=== PATIENT | male | born 1940 | race Caucasian/White ===

== ENCOUNTER 2016-11-30 17:20 | Observation (INO) ==
--- NOTE | 2016-11-30 18:01 | Emergency Department Note ---
START Narrative - START START: I examined this patient and my medical decision-making was reviewed with the SENIOR NETWORK ENGINEER/PA/Advanced Practice Nurse/Resident Physician. I agree with the documented findings, disposition and treatment plan as described except to the extent set forth below. ED attending note: I saw this Patient with the emergency medicine resident Dr. Garcia. Please see a copy of his note for details of the H&P, evaluation, management and disposition of this emergency Department patient. We independently had [id number] contact with the patient. Briefly 76-year-old male history of AAA repair rotation in August and having back pain present for outpatient MRI by his PCP results show probable abscess in iliopsoas area. And is stable abdominal abdominal aortic aneurysm. We consulted the hospitalist service who will accept him for admission after consultation with our general surgical service here. Patient also informed. Blood work pending. Admission anticipated and pending. IV antibiotics are being given after blood cultures. Patient is neurologically nonfocal or change in bowel or bladder habits afebrile with stable vital signs. Patient appears comfortable.
[2016-11-30 18:15] LABS: Basophils # 0.1 K/mcL (0.0-0.2); Basophils % 0.5 %; Eosinophils # 0.4 K/mcL (0.0-0.6); Eosinophils % 2.8 %; Hematocrit 35.6 % (37.5-50.1); Hemoglobin 11.3 g/dL (12.9-16.9); Immature Granulocytes % 2.7 % (0-4); Lymphocytes # 3.3 K/mcL (0.6-4.6); Lymphocytes % 25.8 %; Mean Corpuscular HGB Conc 31.7 g/dL (31.6-35.5); Mean Corpuscular Volume 88.1 fL (83.0-100.0); Mean Platelet Volume 8.9 fL (9.4-12.4); Monocytes # 0.8 K/mcL (0.0-1.3); Monocytes % 6.5 %; Neutrophils # 7.9 K/mcL (1.6-8.9); Platelet Count 372 K/mcL (140-400); Red Blood Count 4.04 M/mcL (4.19-5.50); Red Cell Distribution Width 15.3 % (11.5-14.5); Segmented Neutrophils % 61.7 %
[2016-11-30 18:21] LABS: INR 1.2; Prothrombin Time 13.2 Seconds (9.4-12.1)
--- NOTE | 2016-11-30 18:22 | Emergency Department Note ---
Disposition Clinical Impression: Psoas abscess, right Disposition: Admitted As Inpatient Condition: Good Referrals: NO,PCP [Non-Partnered Physician] - Forms: ED Satisfaction Letter Time of Disposition: 18:28 Back Pain HPI - General Chief Complaint: ED Back Pain/Injury Stated Complaint: sent from PCP s/p MRI Time Seen by Provider: 11/30/16 17:23 Source: patient Mode of arrival: ambulatory Limitations: no limitations Nursing Notes Reviewed: Yes Vital Signs Reviewed: Yes - History of Present Illness HPI Narrative: Patient is a 36-year-old male with CHF, hypertension, hyperlipidemia, renal cancer, CKD, chronic low back pain, aortic aneurysm with repair 10 years ago and revision in August. He presents today due to abnormal MRI. Patient states that he had a revision of his aneurysm in August, shortly after, he began having right-sided low back pain. He is following with his primary care physician who has been treating his pain. An MRI ordered today that showed a right psoas abscess. He was directed to the ED for further evaluation. Patient states that he is mainly been having pain in his right low back with walking, going from sitting to standing. Denies any fevers, nausea, vomiting, numbness, tingling, weakness, chest pain, shortness of breath. - Related Data Home Medications Medication Instructions Recorded Confirmed Aspirin Enteric Coated [Aspirin EC] 81 mg PO DAILY 11/30/16 11/30/16 Carvedilol 12.5 mg PO BID 11/30/16 11/30/16 Escitalopram [Lexapro] 10 mg PO DAILY 11/30/16 11/30/16 Furosemide [Lasix] 20 mg PO DAILY 11/30/16 11/30/16 HYDROcodone/Acet 5/325 mg [[place] 1 - 2 tab PO Q6H PRN 11/30/16 11/30/16 5-325 mg] Lisinopril [Zestril] 5 mg PO DAILY 11/30/16 11/30/16 Simvastatin [Zocor] 40 mg PO HS 11/30/16 11/30/16 Zolpidem [Ambien] 10 mg PO HS PRN 11/30/16 11/30/16 Allergies Allergy/AdvReac Type Severity Reaction Status Date / Time No Known Allergies Allergy Verified 10/19/16 10:47 Constitutional: Denies: fever Cardiovascular: Denies: chest pain, palpitations Respiratory: Denies: cough, dyspnea, wheezes Gastrointestinal: Denies: abdominal pain, nausea, vomiting, diarrhea, constipation Genitourinary: Denies: urgency, dysuria Musculoskeletal: Reports: back pain Integumentary: Denies: rash Neurological: Denies: weakness, numbness, paresthesias Past Medical History - Past Medical History Attestation: Yes The following information was validated with the patient. Source: patient Medical history: Reports: arthritis, cancer, CHF, hyperlipidemia, hypertension Surgical history: Reports: angioplasty/stent Psychiatric history: Reports: no psych history - Social History Smoking Status: Current every day smoker Smokeless Tobacco Status: No Alcohol use: Reports: rarely Drug use: Reports: none Physical Exam - General Limitations: no limitations General appearance: alert, in no apparent distress - Head Head exam: atraumatic, normocephalic, normal inspection - Eye Eye exam: Present: normal appearance, PERRL, EOMI - ENT ENT exam: mucous membranes moist - Neck Neck exam: Present: normal inspection, full ROM, trachea midline - Chest Chest inspection: Present: normal inspection, symmetric chest wall rise - Respiratory Respiratory exam: Present: normal lung sounds bilaterally - Cardiovascular Cardiovascular exam: Present: regular rate, normal rhythm, normal heart sounds - Abdominal Exam Abdominal exam: Present: soft, Non-Tender. Absent: tenderness, distention, guarding, rebound, rigidity - Extremities Exam Extremities exam: Present: normal inspection, full ROM, other (+2 over 4 posterior tibial pulses. Neurovascularly intact of bilateral lower extremities. ). Absent: tenderness, pedal edema, joint swelling, calf tenderness - Back Exam Back exam: Absent: CVA tenderness (R), CVA tenderness (L), muscle spasm, paraspinal tenderness, vertebral tenderness - Neurological Exam Neurological exam: Present: alert, oriented X3. Absent: motor sensory deficit - Psychiatric Psychiatric exam: Present: normal affect, normal mood - Skin Skin exam: Present: warm, dry, intact, normal color Course Course Narrative: Vitals within normal limits. Patient has no focal neurologic deficits of the lower extremities. +2 over 4 posterior tibial pulses bilaterally. No reproducible back pain on exam. I spoke with the hospitalist who stated that she would accept the patient but wanted surgery to be contacted. I talked with Dr. Spring who stated that there was no much that she could offer in terms of treatment, however, she was agreeable with following the patient and acting as a consult for any further recommendation. Patient will need interventional radiology drainage in the morning. We will draw a sick lab work, cultures, lactic acid and started Zosyn. Plan for admission for further care. MRI shows right psoas muscle collection approximately 4.2 x 2.8 cm. Vital Signs Temperature 97.7 F 11/30/16 17:23 Pulse Rate 83 11/30/16 17:23 Respiratory Rate 18 11/30/16 17:23 Blood Pressure 142/82 11/30/16 17:23 O2 Sat by Pulse Oximetry 97 11/30/16 17:23 Temperature 97.7 F 11/30/16 17:23 Pulse Rate 83 11/30/16 17:23 Respiratory Rate 18 11/30/16 17:23 Blood Pressure 142/82 11/30/16 17:23 O2 Sat by Pulse Oximetry 97 11/30/16 17:23 Oxygen Delivery Oxygen Delivery Room Air Back Pain/Injury - MDM Narrative Medical decision making narrative: Vitals within normal limits. Patient has no focal neurologic deficits of the lower extremities. +2 over 4 posterior tibial pulses bilaterally. No reproducible back pain on exam. I spoke with the hospitalist who stated that she would accept the patient but wanted surgery to be contacted. I talked with Dr. Spring who stated that there was no much that she could offer in terms of treatment, however, she was agreeable with following the patient and acting as a consult for any further recommendation. Patient will need interventional radiology drainage in the morning. We will draw a sick lab work, cultures, lactic acid and started Zosyn. Plan for admission for further care. MRI shows right psoas muscle collection approximately 4.2 x 2.8 cm. - Medical Records Medical records reviewed: Yes I reviewed the patient's medical records. - Lab Data Lab results reviewed: Yes I reviewed the patient's lab results. Result diagrams: 11/30/16 18:00 Lab Results 11/30/16 Range/Units 18:00 WBC 12.9 H (4.3-11.1) K/mcL RBC 4.04 L (4.19-5.50) M/mcL Hgb 11.3 L (12.9-16.9) g/dL Hct 35.6 L (37.5-50.1) % MCV 88.1 (83.0-100.0) fL MCH 28.0 (28.0-33.3) pg MCHC 31.7 (31.6-35.5) g/dL RDW 15.3 H (11.5-14.5) % Plt Count 372 (140-400) K/mcL MPV 8.9 L (9.4-12.4) fL Immature Gran % 2.7 (0-4) % Seg Neutrophils % 61.7 % Lymphocytes % 25.8 % Monocytes % 6.5 % Eosinophils % 2.8 % Basophils % 0.5 % Neutrophils # 7.9 (1.6-8.9) K/mcL Lymphocytes # 3.3 (0.6-4.6) K/mcL Monocytes # 0.8 (0.0-1.3) K/mcL Eosinophils # 0.4 (0.0-0.6) K/mcL Basophils # 0.1 (0.0-0.2) K/mcL - Radiology Data Radiology results reviewed: Yes I reviewed the patient's radiology results. - EKG Data EKG attestation: Yes I reviewed and interpreted this EKG. EKG results narrative: 11/30/2016 18:17. Sinus rhythm. Rate 80. P interval 175. QRS 108. QTC 411. Left axis deviation. No acute ST elevation or depression. No changes from previous EKG on 01/19/2013 [facility] - [facility] Situation: Demographics, MOA Background: Presenting Complaint, Relevant PMH, Meds, & Allergies Assessment: Vital Signs, Course and respsone to treatment, Exam Concerns, Patient/Family Expectation, Pertinant Lab Results, Outstanding Labs Recommendation: Barrier(s) to disposition, Recommendation based on pending studies, treatments, or consults [facility] Report Given to: Dr. Matt LundBFredADaija Repor Time: 18:28
[2016-11-30 18:24] LABS: Activated Partial Thrombo Time 27.7 Seconds (26.0-36.0)
[2016-11-30 18:30] LABS: Calcium 10.1 mg/dL (8.6-10.8); Potassium 4.3 mEq/L (3.5-4.5)
[2016-11-30] MEDS ORDERED: Naloxone 0.4 MG/ML INJ IVP PRN (20:19)
--- NOTE | 2016-11-30 20:51 | Internal Med History&Physical ---
<Lexx Segundo - Last Filed: 11/30/16 21:04> Date of Encounter: 11/30/16 Time of Encounter: 20:00 Assessment and Plan (1) Psoas abscess, right Current visit: Yes Status: Suspected - Suspected right psoas abscess given the fluid collection at size of 4.2 x 2.8 cm and recent revision surgery for AAA. - Positive for leukocytosis but no fever. - Will obtain more blood cultures and check ESR & CRP. - Pain control with prn tylenol and opioid. - Will consult interventional radiology for drainage/sampling of the possible abscess. - Will start IV Zosyn (broad coverage including Pseudomonas) and vancomycin (to cover MRSA given it's likely related to recent surgery). (2) Lumbar back pain with radiculopathy affecting right lower extremity Current visit: Yes Status: Acute - Patient's current right lower back pain is likely secondary to mixed pictures of right psoas abscess and significant spinal canal & foraminal stenosis at L4 as seen on lumbar spine MRI. - Will treat right psoas abscess with Abx and drainage. - Patient may benefit from spinal surgery consult regarding those stenoses and associated radiculopathy. (3) CKD (chronic kidney disease) Current visit: Yes Status: Chronic - SCr 2.19 today with eGFR 29. - Will obtain renal US for further evaluation. - Encourage oral hydration and avoid nephrotoxin. - Continue to monitor renal function and electrolytes. Qualifiers: Chronic kidney disease stage: stage 4 (severe) Qualified Code(s): N18.4 - Chronic kidney disease, stage 4 (severe) (4) Hypertension Current visit: Yes Status: Chronic - BP within normal range. - Continue home antihypertensive regimen. Qualifiers: Hypertension type: essential hypertension Qualified Code(s): I10 - Essential (primary) hypertension (5) History of AAA (abdominal aortic aneurysm) repair Current visit: Yes Status: Chronic - S/p AAA repair in 1997 and revision surgery in August 2016 at [facility]. (6) DVT prophylaxis Current visit: Yes Status: Acute - SQ heparin. Internal Medicine - H&P: HPI Chief complaint: Right lower back pain Admitted From: Emergency Dept Plans for Post Hospital Care: Home History of present illness: Mr. Lowry is a 76 year old male with PMH of CKD stage 3, HTN, CHF, recently found left renal mass and abdominal aorta aneurysm s/p surgeries in 1997 and recent revision in August 2016 at [facility]. Patient reports having right lower back pain since the revision surgery and received pain medications from his PCPs. Patient eventually got outpatient lumbar spine MRI today and that showed Mild-moderate spinal canal stenosis at L4-L5 with severe right L4 foraminal stenosis. fluid collection with overall psoas enlargement & edema, concerning of abscess. Patient was called to come to [place] ED for further evaluation and management. Patient reports the right lower back pain can radiate down to his right knee and it's aggravated by ambulation. Patient denies fever, chills, numbness/tingling, focal weakness or urinary symptoms. Patient denies any known recent trauma or injury. Per patient's daughter at bedside, patient's abdominal aorta aneurysm revision surgery in August 2016 was complicated by prolonged bleeding requiring persistent pressure on right groin site and took 5 hours to finish the surgery. Past Med Surg Social Fam HX - Past Medical History Medical history: arthritis, cancer, CHF (Unknown systolic or diastolic. Per pt, his last echo was many years ago and not at this facility. It seems to be well- controlled.), hyperlipidemia, hypertension Psychiatric history: no psych history - Past Surgical History Surgical History: vascular surgery (AAA repair in 1997 and revision in August 2016 at [facility].) - Social History Smoking Status: Current every day smoker Packs per day: 1 pack per days for more than 50 years Smokeless Tobacco Status: No Alcohol use: rarely Drug use: none - Family History Father Living Status: Age at : 62 Cause of : LA Hx Family Cardiac Disorders: Yes (LA, HTN) Mother Living Status: Age at : 68 Hx Family Cancer: Yes (Stomach cancer) Internal Medicine - H&P: Meds Aspirin Enteric Coated [Aspirin EC] 81 mg PO DAILY 11/30/16 [History] Carvedilol 12.5 mg PO BID 11/30/16 [History] Escitalopram [Lexapro] 10 mg PO DAILY 11/30/16 [History] Furosemide [Lasix] 20 mg PO DAILY 11/30/16 [History] HYDROcodone/Acet 5/325 mg [[place] 5-325 mg] 1 - 2 tab PO Q6H PRN 11/30/16 [ History] Lisinopril [Zestril] 5 mg PO DAILY 11/30/16 [History] Simvastatin [Zocor] 40 mg PO HS 11/30/16 [History] Zolpidem [Ambien] 10 mg PO HS PRN 11/30/16 [History] Allergies No Known Allergies Allergy (Verified 10/19/16 10:47) All Systems PM: A 10-system review of systems was performed and is negative for pertinent findings except as documented above in the HPI. - Constitutional Constitutional: weight loss (18 lbs), no anorexia, no chills, no fever(s) - EENT Eyes: no change in vision Ears: no decreased hearing Nose, mouth and throat: no dysphagia, no odynophagia - Cardiovascular Cardiovascular ROS IM: no chest pain, no lightheadedness, no palpitations, no syncope - Respiratory Respiratory: no cough, no dyspnea, no hemoptysis - Gastrointestinal Gastrointestinal: abdominal pain (RLQ), no diarrhea, no hematochezia, no melena , no nausea, no vomiting - Genitourinary Genitourinary ROS male: no difficulty urinating, no dysuria, no hematuria - Musculoskeletal Musculoskeletal ROS IM: back pain, no arthralgias, no myalgias - Integumentary Integumentary IM: no pruritus, no rash - Neurological Neurological ROS: no focal weakness, no numbness, no tingling - Hematologic/Lymphatic Hematologic/Lymphatic: no easy bleeding, no easy bruising - Constitutional Vitals: Temp Pulse Resp BP Pulse Ox 98.0 F 80 16 124/71 96 11/30/16 20:27 11/30/16 20:27 11/30/16 20:27 11/30/16 20:27 11/30/16 20:27 General appearance: Present: A&O X 3 - Head Head exam: Present: atraumatic, normocephalic - Eye Eye exam: Present: PERRL, conjuntiva pink, sclera anicteric - Neck Neck exam general surgery: Present: supple, trachea midline. Absent: lymphadenopathy - Respiratory Respiratory exam: Present: CTAB. Absent: accessory muscle use, rales, rhonchi, wheezes - Cardiovascular Cardiovascular exam: Present: RRR, +S1, +S2. Absent: diastolic murmur, gallop, rubs, systolic murmur - GI/Abdominal GI/Abdominal exam: Present: normal bowel sounds, soft, tenderness (Right middle and lower quadrants), no peritoneal signs. Absent: distended - Extremities Exam Extremities exam: Present: warm, radial pulses palpable and symetrical. Absent : calf tenderness, cyanotic, pedal edema - Back Exam Back exam: Present: tenderness (Right lower back) - Neurological Exam Neurological exam: Present: CN II-XII intact, oriented X3, no focal deficits. Absent: pronater drift, facial droop, speech deficit - Skin Skin exam: Present: dry, intact Internal Med - H&P Results - Labs CBC & Chem 7: 11/30/16 18:00 11/30/16 18:00 <AldoMikal Martines - Last Filed: 12/01/16 03:20> Date of Encounter: 11/18/16 Internal Medicine - H&P: HPI History of present illness: Mr. Lowry is a 76 year old male was admitted to via the emergency room when he was referred by his PCP after review of outpatient MRI of lumbar spine to evaluate 3mos history of low back pain with right leg radiculopathy. The patient is s/p AAA repair-revision in August. MRI demonstrated a 4.2 x 2.8 cm fluid collection concerning for abscess in the right iliopsoas muscle area. The study also demonstrated multi-level DDD/DJD of lumbar spine with moderate L4-L5 spinal canal stenosis and severe right L4 neuroforaminal stenosis. He is not toxic or acutely ill. He does not possess evidence of gross neurologic nor vascular impairment. He does not fulfill SIRS/ sepsis criteria upon admission. Radicular pain by examination most consistent with apparent lumbar spinal stenoses. Lower flank pain may relate to right psoas muscle and abscess fluid collection. Formal sampling of abscess material will help guide appropriate treatment(s). Workup and treatments will proceed comprehensively. The patient was visited and interviewed and examined. I examined this patient and my medical decision-making was reviewed with the Resident Physician, Dr. Lexx Segundo. For this encounter, I have reviewed the documentation, treatment plan, and medical decision making. I agree with the documented findings, disposition and treatment plan as described except to the extent set forth below. Cumulative laboratory and radiographic database was reviewed, considered and discussed. Given the patient's presenting chief concerns, past medical history,clinical findings and symptoms, he is admitted at this time to undergo further evaluation and disposition. Orders written. Past Med Surg Social Fam HX - Past Medical History Source: old records reviewed Medical history: aortic aneurysm, peripheral artery disease, renal disease, other Psychiatric history: anxiety, depression, other - Past Surgical History Surgical History: vascular surgery, other - Social History Occupational status: retired Current living situation: Home, With Family Activity Level: Independent ambulation, Mostly sedentary Recent Out of Country Travel Within the Last 8 Weeks: No Exposure or Possible Exposure to Illness During Travel: No All Systems PM: A 10-system review of systems was performed and is negative for pertinent findings except as documented above in the HPI. - Constitutional Vitals: Temp Pulse Resp BP Pulse Ox 98.2 F 77 16 115/64 94 12/01/16 00:26 12/01/16 00:26 12/01/16 00:26 12/01/16 00:26 12/01/16 00:26 Short CBC 11/30/16 Range/Units 18:00 WBC 12.9 H (4.3-11.1) K/mcL Hgb 11.3 L (12.9-16.9) g/dL Hct 35.6 L (37.5-50.1) % Plt Count 372 (140-400) K/mcL Neutrophils # 7.9 (1.6-8.9) K/mcL BMP 11/30/16 Range/Units 18:00 Sodium 136 (136-145) mEq/L Potassium 4.3 (3.5-4.5) mEq/L Chloride 97 L (98-109) mEq/L Carbon Dioxide 30 H (19-29) mEq/L BUN 31 H (8-26) mg/dL Creatinine 2.19 H (0.72-1.25) mg/dL Glucose 108 H (70-99) mg/dL Calcium 10.1 (8.6-10.8) mg/dL Liver Function 11/30/16 Range/Units 21:02 Total Bilirubin 0.3 (0.2-1.2) mg/dL Direct Bilirubin 0.2 (0.0-0.5) mg/dL AST 16 (5-34) Units/L ALT 19 (0-55) Units/L Alkaline Phosphatase 72 (38-126) Units/L Albumin 2.8 L (3.5-5.0) g/dL Urine 11/30/16 Range/Units 23:10 Urine Color Yellow (Yellow) Urine Clarity Clear (Clear) Urine pH 6.5 (5.0-8.0) pH Units Ur Specific [place] 1.011 (1.010-1.025) Urine Protein Negative (Neg-Trace) mg/dL Urine Glucose (UA) Normal (Normal) mg/dL Vital Signs Temp Pulse Resp BP Pulse Ox 12/01/16 00:26 98.2 F 77 16 115/64 94 11/30/16 20:27 98.0 F 80 16 124/71 96 11/30/16 19:35 16 186/85 11/30/16 17:23 97.7 F 83 18 142/82 97 Intake and Output 11/30/16 11/30/16 12/01/16 15:59 23:59 07:59 Output Total 0 / 0 300 / 300 Balance 0 / 0 -300 / -300 Output: Urine 0 / 0 300 / 300 Other: Weight 95.889 kg Internal Med - H&P Results - Labs CBC & Chem 7: 11/30/16 18:00 11/30/16 18:00 Labs: Liver Function 11/30/16 Range/Units 21:02 Total Bilirubin 0.3 (0.2-1.2) mg/dL Direct Bilirubin 0.2 (0.0-0.5) mg/dL AST 16 (5-34) Units/L ALT 19 (0-55) Units/L Alkaline Phosphatase 72 (38-126) Units/L Albumin 2.8 L (3.5-5.0) g/dL Urine 11/30/16 Range/Units 23:10 Urine Color Yellow (Yellow) Urine Clarity Clear (Clear) Urine pH 6.5 (5.0-8.0) pH Units Ur Specific [place] 1.011 (1.010-1.025) Urine Protein Negative (Neg-Trace) mg/dL Urine Glucose (UA) Normal (Normal) mg/dL Abnormal lab results WBC 12.9 K/mcL (4.3-11.1) H 11/30/16 18:00 RBC 4.04 M/mcL (4.19-5.50) L 11/30/16 18:00 Hgb 11.3 g/dL (12.9-16.9) L 11/30/16 18:00 Hct 35.6 % (37.5-50.1) L 11/30/16 18:00 RDW 15.3 % (11.5-14.5) H 11/30/16 18:00 MPV 8.9 fL (9.4-12.4) L 11/30/16 18:00 ESR 124 mm/hr (0-10) H 11/30/16 21:02 PT 13.2 Seconds (9.4-12.1) H 11/30/16 18:00 Chloride 97 mEq/L (98-109) L 11/30/16 18:00 Carbon Dioxide 30 mEq/L (19-29) H 11/30/16 18:00 BUN 31 mg/dL (8-26) H 11/30/16 18:00 Creatinine 2.19 mg/dL (0.72-1.25) H 11/30/16 18:00 Est GFR ( Amer) 36 (> 60) L 11/30/16 18:00 Est GFR (Non-Af Amer) 29 (> 60) L 11/30/16 18:00 Glucose 108 mg/dL (70-99) H 11/30/16 18:00 C-Reactive Protein 58 mg/L (Less than 5) H 11/30/16 21:02 Albumin 2.8 g/dL (3.5-5.0) L 11/30/16 21:02 Globulin 4.3 g/dL (2.4-3.5) H 11/30/16 21:02 Albumin/Globulin Ratio 0.7 (1.1-2.2) L 11/30/16 21:02 Laboratory Results WBC 12.9 K/mcL (4.3-11.1) H 11/30/16 18:00 RBC 4.04 M/mcL (4.19-5.50) L 11/30/16 18:00 Hgb 11.3 g/dL (12.9-16.9) L 11/30/16 18:00 Hct 35.6 % (37.5-50.1) L 11/30/16 18:00 MCV 88.1 fL (83.0-100.0) 11/30/16 18:00 MCH 28.0 pg (28.0-33.3) 11/30/16 18:00 MCHC 31.7 g/dL (31.6-35.5) 11/30/16 18:00 RDW 15.3 % (11.5-14.5) H 11/30/16 18:00 Plt Count 372 K/mcL (140-400) 11/30/16 18:00 MPV 8.9 fL (9.4-12.4) L 11/30/16 18:00 Immature Gran % 2.7 % (0-4) 11/30/16 18:00 Seg Neutrophils % 61.7 % 11/30/16 18:00 Lymphocytes % 25.8 % 11/30/16 18:00 Monocytes % 6.5 % 11/30/16 18:00 Eosinophils % 2.8 % 11/30/16 18:00 Basophils % 0.5 % 11/30/16 18:00 Neutrophils # 7.9 K/mcL (1.6-8.9) 11/30/16 18:00 Lymphocytes # 3.3 K/mcL (0.6-4.6) 11/30/16 18:00 Monocytes # 0.8 K/mcL (0.0-1.3) 11/30/16 18:00 Eosinophils # 0.4 K/mcL (0.0-0.6) 11/30/16 18:00 Basophils # 0.1 K/mcL (0.0-0.2) 11/30/16 18:00 ESR 124 mm/hr (0-10) H 11/30/16 21:02 PT 13.2 Seconds (9.4-12.1) H 11/30/16 18:00 INR 1.2 11/30/16 18:00 APTT 27.7 Seconds (26.0-36.0) 11/30/16 18:00 Sodium 136 mEq/L (136-145) 11/30/16 18:00 Potassium 4.3 mEq/L (3.5-4.5) 11/30/16 18:00 Chloride 97 mEq/L (98-109) L 11/30/16 18:00 Carbon Dioxide 30 mEq/L (19-29) H 11/30/16 18:00 BUN 31 mg/dL (8-26) H 11/30/16 18:00 Creatinine 2.19 mg/dL (0.72-1.25) H 11/30/16 18:00 Est GFR ( Amer) 36 (> 60) L 11/30/16 18:00 Est GFR (Non-Af Amer) 29 (> 60) L 11/30/16 18:00 BUN/Creatinine Ratio 14 (6-26) 11/30/16 18:00 Glucose 108 mg/dL (70-99) H 11/30/16 18:00 Calculated Osmolality 289 (280-300) 11/30/16 18:00 Lactic Acid 0.9 mmol/L (0.5-2.2) 11/30/16 18:00 Calcium 10.1 mg/dL (8.6-10.8) 11/30/16 18:00 Total Bilirubin 0.3 mg/dL (0.2-1.2) 11/30/16 21:02 Direct Bilirubin 0.2 mg/dL (0.0-0.5) 11/30/16 21:02 Indirect Bilirubin 0.1 mg/dL (0.0-1.2) 11/30/16 21:02 AST 16 Units/L (5-34) 11/30/16 21:02 ALT 19 Units/L (0-55) 11/30/16 21:02 Alkaline Phosphatase 72 Units/L (38-126) 11/30/16 21:02 C-Reactive Protein 58 mg/L (Less than 5) H 11/30/16 21:02 Serum Total Protein 7.1 g/dL (6.0-8.3) 11/30/16 21:02 Albumin 2.8 g/dL (3.5-5.0) L 11/30/16 21:02 Globulin 4.3 g/dL (2.4-3.5) H 11/30/16 21:02 Albumin/Globulin Ratio 0.7 (1.1-2.2) L 11/30/16 21:02 Urine Color Yellow (Yellow) 11/30/16 23:10 Urine Clarity Clear (Clear) 11/30/16 23:10 Urine pH 6.5 pH Units (5.0-8.0) 11/30/16 23:10 Ur Specific [place] 1.011 (1.010-1.025) 11/30/16 23:10 Urine Protein Negative mg/dL (Neg-Trace) 11/30/16 23:10 Urine Glucose (UA) Normal mg/dL (Normal) 11/30/16 23:10 Urine Ketones Negative mg/dL (Negative) 11/30/16 23:10 Urine Blood Negative (Negative) 11/30/16 23:10 Urine Nitrite Negative (Negative) 11/30/16 23:10 Urine Bilirubin Negative (Negative) 11/30/16 23:10 Urine Urobilinogen Normal mg/dL (Normal) 11/30/16 23:10 Ur Leukocyte Esterase Negative (Negative) 11/30/16 23:10 Ur Culture Indicated? NO (NO) 11/30/16 23:10 Impressions Retroperitoneum Ultrasound 11/30/16 22:00 IMPRESSION: Renal cysts are seen on the left with an area of increased echotexture which is not seen as a mass on the recent CT scan and therefore must be considered technically erroneous. D/ / Robert Zamora MD / Robert Zamora MD Interpreting Provider: Robert Zamora MD - Impressions ITS Impressions Retroperitoneum Ultrasound 11/30/16 22:00 IMPRESSION: Renal cysts are seen on the left with an area of increased echotexture which is not seen as a mass on the recent CT scan and therefore must be considered technically erroneous. D/ / Robert Zamora MD / Robert Zamora MD Interpreting Provider: Robert Zamora MD - Attending Attestation My signature below is to certify that this patient is under my care and that I, or the Resident Physician working with me, has had a [id number] encounter with this patient.
[2016-11-30] MEDS ORDERED: Vancomycin 1,500 MG in D5% in Water 250 ML IVPB SCH (21:00)
[2016-11-30 21:25] LABS: Albumin 2.8 g/dL (3.5-5.0); Albumin/Globulin Ratio 0.7 (1.1-2.2); Bilirubin,Direct 0.2 mg/dL (0.0-0.5); Bilirubin,Indirect 0.1 mg/dL (0.0-1.2); Bilirubin,Total 0.3 mg/dL (0.2-1.2); Globulin 4.3 g/dL (2.4-3.5); Total Protein 7.1 g/dL (6.0-8.3)
[2016-11-30] MEDS: Piperacillin/Tazobactam 3.375 GM in D5% in Water (Mini-Bag+) 100 ML IVPB SCH (23:05)
[2016-11-30] MEDS: *HR* Heparin 5,000 UNIT/ML VIAL SQ SCH (23:05)
[2016-11-30 23:25] LABS: Bilirubin,Urine Negative (Negative); Blood,Urine Negative (Negative); Clarity,Urine Clear (Clear); Color,Urine Yellow (Yellow); Glucose,Urine (UA) Normal (Normal); Ketones,Urine Negative (Negative); Leukocyte Esterase,Urine Negative (Negative); Nitrite,Urine Negative (Negative); PH,Urine 6.5 pH Units (5.0-8.0); Protein,Urine Negative (Neg-Trace); Specific Gravity,Urine 1.011 (1.010-1.025); Urobilinogen,Urine Normal (Normal)
[2016-11-30] MEDS: *HR* OxyCODONE Immed Rel 5 MG TABLET PO PRN (23:29)
[2016-12-01] MEDS ORDERED: Vancomycin 1,250 MG in D5% in Water 250 ML IVPB ONE (01:00)
[2016-12-01] MEDS ORDERED: Ondansetron 4 MG/2 ML VIAL IVP PRN (03:25)
[2016-12-01 05:47] LABS: Basophils % 0.4 %; Eosinophils # 0.4 K/mcL (0.0-0.6); Eosinophils % 3.4 %; Hematocrit 32.6 % (37.5-50.1); Hemoglobin 10.1 g/dL (12.9-16.9); Immature Granulocytes % 2.5 % (0-4); Lymphocytes # 2.6 K/mcL (0.6-4.6); Lymphocytes % 22.7 %; Mean Corpuscular Hemoglobin 27.4 pg (28.0-33.3); Mean Corpuscular Volume 88.3 fL (83.0-100.0); Mean Platelet Volume 8.9 fL (9.4-12.4); Monocytes # 0.9 K/mcL (0.0-1.3); Monocytes % 7.9 %; Neutrophils # 7.1 K/mcL (1.6-8.9); Platelet Count 336 K/mcL (140-400); Red Blood Count 3.69 M/mcL (4.19-5.50); Red Cell Distribution Width 15.3 % (11.5-14.5); Segmented Neutrophils % 63.1 %
[2016-12-01 06:01] LABS: Calcium 9.5 mg/dL (8.6-10.8); Potassium 4.2 mEq/L (3.5-4.5)
[2016-12-01] MEDS: *HR* Heparin 5,000 UNIT/ML VIAL SQ SCH ×2 (06:28→17:50)
[2016-12-01] MEDS: Ringers Solution, Lactated 500 ML IVC SCH ×2 (06:33→15:54)
[2016-12-01] MEDS: Aspirin Enteric Coated 81 MG Tablet PO SCH (08:47)
[2016-12-01] MEDS: Acetaminophen 325 MG TABLET PO PRN ×2 (09:19→15:49)
[2016-12-01] MEDS: *HR* OxyCODONE Immed Rel 5 MG TABLET PO PRN ×2 (09:19→15:49)
--- NOTE | 2016-12-01 10:36 | Event Note ---
Date of Encounter: 12/01/16 Time of Encounter: 08:05 Stopped in and talked with patient and daughter. Patient has been having middle lower and right back pain ever since his enodvascular Ao-bifem aneurysm repair at [facility]. Due to the back pain he had an MRI done which showed two fluid collections within the right psoas. HE was recently diagnosed with left renal cell carcinoma. He denies issues with fevers, chill, or night sweats. He has a little abdominal pain, diffuse. Discussed with patient and daughter there is nothing to do from a general surgery standpoint. I have ensured that there is a consult to IR and an order for percutaneous aspiration or drain placement with cultures. It may be a sterile fluid collection. Pts wbc 11-12. Abdomen soft, no rebound or guarding, + bs right wheel truing machine tender to palpation. General surgery will sign- off, please call if needed.
--- NOTE | 2016-12-01 11:22 | IR Procedure Note ---
Date of procedure: 12/01/16 Consent Obtained: Verbal consent, Written consent Timeout: Correct patient and procedure verified, Correct site verified, Time out performed, Skin prep completed Local anesthetic: Lidocaine 1% Indications: Psoas Abscess Procedure Performed: Psoas abscess drain placement Site/Technique: 10 Fr abscess drain placed in right psoas abscess Results/Findings: 40 cc pus aspirated Estimated blood loss (cc): 1 Complications: None; Tolerated procedure well Post Procedure Treatment Plan: Drain to LILY bulb suction
[2016-12-01] MEDS: Piperacillin/Tazobactam 3.375 GM in D5% in Water (Mini-Bag+) 100 ML IVPB SCH (12:00)
[2016-12-01] MEDS: *HR* HYDROmorphone (PF) 1 MG/ML SYRINGE IVP PRN ×2 (14:55→20:46)
--- NOTE | 2016-12-01 15:05 | Internal Med Progress Note ---
Date of Encounter: 12/01/16 Time of Encounter: 10:00 - Assessment and plan (1) Psoas abscess, right Current Visit: Yes Status: Suspected Assessment and plan: We will await results of culture and sensitivity after abscesses drained. Continue antibiotics for now. Moderate risk for complications (2) Lumbar back pain with radiculopathy affecting right lower extremity Current Visit: Yes Status: Acute (3) Hypertension Current Visit: Yes Status: Chronic Assessment and plan: Blood pressure is well controlled. Continue lisinopril Qualifiers: Hypertension type: essential hypertension Qualified Code(s): I10 - Essential (primary) hypertension (4) CKD (chronic kidney disease) Current Visit: Yes Status: Chronic Assessment and plan: Creatinine is stable. Will those medications regularly according to GFR. Qualifiers: Chronic kidney disease stage: stage 4 (severe) Qualified Code(s): N18.4 - Chronic kidney disease, stage 4 (severe) (5) DVT prophylaxis Current Visit: Yes Status: Acute Assessment and plan: With subcutaneous heparin - Subjective Interval history: Patient is awake and alert. Pain is well controlled in his right lower back region. No fever or chills reported. Awaiting IR guided incision and drainage of psoas abscess later today. - Constitutional Vitals: Temp Pulse Resp BP Pulse Ox 98.3 F 86 14 96/54 96 12/01/16 12:03 12/01/16 12:03 12/01/16 12:03 12/01/16 12:03 12/01/16 12:03 General appearance: Present: cooperative, A&O X 3, pleasant, no acute distress, answers questions appropriately - Respiratory Respiratory exam: Present: CTAB. Absent: accessory muscle use, rales, rhonchi, wheezes - Cardiovascular Cardiovascular exam: Present: RRR, +S1, +S2. Absent: diastolic murmur, gallop, rubs, systolic murmur - GI/Abdominal GI/Abdominal exam: Present: normal bowel sounds, soft, no peritoneal signs. Absent: distended, tenderness - Extremities Exam Extremities exam: Present: warm, radial pulses palpable and symetrical. Absent : calf tenderness, cyanotic, pedal edema - Back Exam Additional comments: Palpable swelling in the left CVA region. Nontender to palpation. Tender mass present in the right paraspinal region in the lumbar area - Neurological Exam Neurological exam: Present: alert, oriented X3, no focal deficits. Absent: facial droop, speech deficit - Skin Skin exam: Present: dry, intact Internal Medicine: Result - Labs CBC & Chem 7: 12/01/16 05:09 12/01/16 05:09 Labs: Short CBC 12/01/16 Range/Units 05:09 WBC 11.2 H (4.3-11.1) K/mcL Hgb 10.1 L (12.9-16.9) g/dL Hct 32.6 L (37.5-50.1) % Plt Count 336 (140-400) K/mcL Neutrophils # 7.1 (1.6-8.9) K/mcL BMP 12/01/16 05:09 Sodium 136 Potassium 4.2 Chloride 100 Carbon Dioxide 25 BUN 28 H Creatinine 2.01 H Glucose 120 H Calcium 9.5 Liver Function 11/30/16 Range/Units 21:02 Total Bilirubin 0.3 (0.2-1.2) mg/dL Direct Bilirubin 0.2 (0.0-0.5) mg/dL AST 16 (5-34) Units/L ALT 19 (0-55) Units/L Alkaline Phosphatase 72 (38-126) Units/L Albumin 2.8 L (3.5-5.0) g/dL Urine 11/30/16 Range/Units 23:10 Urine Color Yellow (Yellow) Urine Clarity Clear (Clear) Urine pH 6.5 (5.0-8.0) pH Units Ur Specific [place] 1.011 (1.010-1.025) Urine Protein Negative (Neg-Trace) mg/dL Urine Glucose (UA) Normal (Normal) mg/dL - ABG Interpretation ABG results: PT/INR, D-dimer PT 13.2 Seconds (9.4-12.1) H 11/30/16 18:00 - Impressions Impressions Retroperitoneum Ultrasound 11/30/16 22:00 IMPRESSION: Renal cysts are seen on the left with an area of increased echotexture which is not seen as a mass on the recent CT scan and therefore must be considered technically erroneous. D/ / Robert Zamora MD / Robert Zamora MD Interpreting Provider: Robert Zamora MD Retroperitoneal Abscess Drainage 12/01/16 08:08 IMPRESSION: Successful CT guided placement of a 10 [place] drain within a right psoas abscess. 40 cc of purulent fluid was aspirated from the psoas collection and sent for cultures. No immediate complications. D/ / Clinton Chapin MD / Clinton Chapin MD Interpreting Provider: Clinton Chapin MD Consult Discharge Plan - Plan Referrals: Alexander Quiroz Jr, MD [Primary Care Provider] - - Attending Attestation This document has been at least partially created by [employer] recognition technology by Dr. Madrid. Errors in grammar, wording or other phrases may exist. If errors are found after the documentation is signed, they will be addressed individually in the addendum section of this document when appropriate.
--- NOTE | 2016-12-01 17:36 | Electrocardiograph Report ---
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
[2016-12-01] MEDS: Vancomycin 1,000 MG in D5% in Water 250 ML IVPB SCH (17:50)
[2016-12-02] MEDS: Piperacillin/Tazobactam 3.375 GM in D5% in Water (Mini-Bag+) 100 ML IVPB SCH ×3 (00:19→17:22)
[2016-12-02] MEDS: *HR* OxyCODONE Immed Rel 5 MG TABLET PO PRN ×4 (00:24→20:47)
[2016-12-02] MEDS: *HR* HYDROmorphone (PF) 1 MG/ML SYRINGE IVP PRN ×4 (03:32→17:18)
[2016-12-02] MEDS: Ringers Solution, Lactated 500 ML IVC SCH ×2 (03:36→20:45)
[2016-12-02 04:34] LABS: Basophils % 0.4 %; Eosinophils # 0.4 K/mcL (0.0-0.6); Eosinophils % 3.7 %; Hematocrit 28.1 % (37.5-50.1); Hemoglobin 8.7 g/dL (12.9-16.9); Immature Granulocytes % 2.5 % (0-4); Lymphocytes # 2.4 K/mcL (0.6-4.6); Lymphocytes % 25.8 %; Mean Corpuscular Hemoglobin 27.3 pg (28.0-33.3); Mean Corpuscular Volume 88.1 fL (83.0-100.0); Mean Platelet Volume 8.8 fL (9.4-12.4); Monocytes # 0.9 K/mcL (0.0-1.3); Monocytes % 9.3 %; Neutrophils # 5.5 K/mcL (1.6-8.9); Platelet Count 275 K/mcL (140-400); Red Blood Count 3.19 M/mcL (4.19-5.50); Red Cell Distribution Width 15.2 % (11.5-14.5); Segmented Neutrophils % 58.3 %
[2016-12-02 04:57] LABS: Calcium 8.8 mg/dL (8.6-10.8); Potassium 4.2 mEq/L (3.5-4.5)
[2016-12-02] MEDS: *HR* Heparin 5,000 UNIT/ML VIAL SQ SCH ×2 (06:36→17:41)
[2016-12-02] MEDS: Aspirin Enteric Coated 81 MG Tablet PO SCH (08:06)
--- NOTE | 2016-12-02 10:09 | Internal Med Progress Note ---
Date of Encounter: 12/02/16 Time of Encounter: 09:45 - Assessment and plan (1) Psoas abscess, right Current Visit: Yes Status: Acute Assessment and plan: Cultures are currently pending. Initial analysis suggests this is an infected abscess. We will wait for culture results and continue current broad-spectrum antibiotics for now. Moderate risk for complications. Blood cultures have been negative. (2) Lumbar back pain with radiculopathy affecting right lower extremity Current Visit: Yes Status: Acute Assessment and plan: Supportive care. Pain control. (3) Hypertension Current Visit: Yes Status: Chronic Assessment and plan: Blood pressure is well controlled at this time Qualifiers: Hypertension type: essential hypertension Qualified Code(s): I10 - Essential (primary) hypertension (4) CKD (chronic kidney disease) Current Visit: Yes Status: Chronic Assessment and plan: Renal function slightly better today with creatinine of 1.8 Qualifiers: Chronic kidney disease stage: stage 4 (severe) Qualified Code(s): N18.4 - Chronic kidney disease, stage 4 (severe) (5) DVT prophylaxis Current Visit: Yes Status: Acute (6) Anemia Current Visit: Yes Status: Acute Assessment and plan: Hemoglobin 8.7 today. Will check iron, folic acid, ferritin and B12 levels. Patient has not had a colonoscopy before. We will monitor blood counts closely. Qualifiers: Anemia type: other cause Other causes of anemia: chronic disease, kidney Qualified Code(s): N18.9 - Chronic kidney disease, unspecified; D63.1 - Anemia in chronic kidney disease - Subjective Interval history: Patient underwent right psoas abscess drainage under IR guidance and has not LILY drain in place. Pain is much better. Denies any fever or chills or night sweats. No melena or hematochezia. - Constitutional Vitals: Temp Pulse Resp BP Pulse Ox 98.8 F 72 16 133/77 95 12/02/16 07:51 12/02/16 07:51 12/02/16 07:51 12/02/16 07:51 12/02/16 07:51 General appearance: Present: cooperative, A&O X 3, pleasant, no acute distress, answers questions appropriately - Respiratory Respiratory exam: Present: CTAB. Absent: accessory muscle use, rales, rhonchi, wheezes - Cardiovascular Cardiovascular exam: Present: RRR, +S1, +S2. Absent: diastolic murmur, gallop, rubs, systolic murmur - GI/Abdominal GI/Abdominal exam: Present: normal bowel sounds, soft, no peritoneal signs. Absent: distended, tenderness - Extremities Exam Extremities exam: Present: warm, radial pulses palpable and symetrical. Absent : calf tenderness, cyanotic, pedal edema - Back Exam Back exam: Absent: CVA tenderness (L), CVA tenderness (R), paraspinal tenderness - Neurological Exam Neurological exam: Present: alert, oriented X3, no focal deficits. Absent: facial droop, speech deficit Internal Medicine: Result - Labs CBC & Chem 7: 12/02/16 04:21 12/02/16 04:21 Labs: Short CBC 12/02/16 Range/Units 04:21 WBC 9.5 (4.3-11.1) K/mcL Hgb 8.7 L (12.9-16.9) g/dL Hct 28.1 L (37.5-50.1) % Plt Count 275 (140-400) K/mcL Neutrophils # 5.5 (1.6-8.9) K/mcL BMP 12/02/16 04:21 Sodium 136 Potassium 4.2 Chloride 103 Carbon Dioxide 27 BUN 24 Creatinine 1.89 H Glucose 150 H Calcium 8.8 - ABG Interpretation ABG results: PT/INR, D-dimer PT 13.2 Seconds (9.4-12.1) H 11/30/16 18:00 - Impressions Impressions Retroperitoneal Abscess Drainage 12/01/16 08:08 IMPRESSION: Successful CT guided placement of a 10 Vincentian drain within a right psoas abscess. 40 cc of purulent fluid was aspirated from the psoas collection and sent for cultures. No immediate complications. D/ / Clinton Chapin MD / Clinton Chapin MD Interpreting Provider: Clinton Chapin MD Consult Discharge Plan - Plan Referrals: Alexander Quiroz Jr, MD [Primary Care Provider] - - Attending Attestation This document has been at least partially created by [employer] recognition technology by Dr. Madrid. Errors in grammar, wording or other phrases may exist. If errors are found after the documentation is signed, they will be addressed individually in the addendum section of this document when appropriate.
[2016-12-02 11:15] LABS: Folate 9.9 ng/mL (7.0-31.4)
[2016-12-02] MEDS: Vancomycin 1,000 MG in D5% in Water 250 ML IVPB SCH (17:24)
[2016-12-03] MEDS: Piperacillin/Tazobactam 3.375 GM in D5% in Water (Mini-Bag+) 100 ML IVPB SCH ×2 (00:07→07:45)
[2016-12-03] MEDS: *HR* Heparin 5,000 UNIT/ML VIAL SQ SCH (05:50)
[2016-12-03] MEDS: Ringers Solution, Lactated 500 ML IVC SCH (07:33)
[2016-12-03] MEDS: Aspirin Enteric Coated 81 MG Tablet PO SCH (07:47)
[2016-12-03] MEDS: *HR* OxyCODONE Immed Rel 5 MG TABLET PO PRN (07:47)
[2016-12-03 08:14] VITALS: BP 120/69
[2016-12-03] MEDS ORDERED: Ringers Solution, Lactated 1,000 ML IVC SCH (08:45)
[2016-12-03 09:18] LABS: Hematocrit 29.5 % (37.5-50.1); Hemoglobin 9.3 g/dL (12.9-16.9)
[2016-12-03] MEDS: *HR* HYDROmorphone (PF) 1 MG/ML SYRINGE IVP PRN (09:39)
--- NOTE | 2016-12-03 10:04 | Discharge Summary ---
Date of Encounter: 12/03/16 Time of Encounter: 08:35 - Discharge Diagnosis (1) Psoas abscess, right Priority: Primary Status: Acute (2) Lumbar back pain with radiculopathy affecting right lower extremity Priority: Secondary Status: Acute (3) Hypertension Priority: Secondary Status: Chronic Qualifiers: Hypertension type: essential hypertension Qualified Code(s): I10 - Essential (primary) hypertension (4) CKD (chronic kidney disease) Priority: Secondary Status: Chronic Qualifiers: Chronic kidney disease stage: stage 4 (severe) Qualified Code(s): N18.4 - Chronic kidney disease, stage 4 (severe) (5) DVT prophylaxis Priority: Secondary Status: Acute (6) Anemia Priority: Secondary Status: Acute Qualifiers: Anemia type: other cause Other causes of anemia: chronic disease, kidney Qualified Code(s): N18.9 - Chronic kidney disease, unspecified; D63.1 - Anemia in chronic kidney disease - Discharge Medications Prescriptions: Clindamycin HCl 150 mg PO QID #40 capsule Clindamycin HCl 300 mg PO QID #40 capsule Ferrous Sulfate 325 mg PO BIDWM #60 tablet Lactobacillus [Culturelle] 1 each PO BID #30 cap.sprink Home Medications: Aspirin Enteric Coated [Aspirin EC] 81 mg PO DAILY 11/30/16 [History] Carvedilol 12.5 mg PO BID 11/30/16 [History] Escitalopram [Lexapro] 10 mg PO DAILY 11/30/16 [History] Furosemide [Lasix] 20 mg PO DAILY 11/30/16 [History] HYDROcodone/Acet 5/325 mg [Eden 5-325 mg] 1 - 2 tab PO Q6H PRN 11/30/16 [ History] Lisinopril [Zestril] 5 mg PO DAILY 11/30/16 [History] Simvastatin [Zocor] 40 mg PO HS 11/30/16 [History] Zolpidem [Ambien] 10 mg PO HS PRN 11/30/16 [History] Clindamycin HCl 150 mg PO QID #40 capsule 12/03/16 [Rx] Clindamycin HCl 300 mg PO QID #40 capsule 12/03/16 [Rx] Ferrous Sulfate 325 mg PO BIDWM #60 tablet 12/03/16 [Rx] Lactobacillus [Culturelle] 1 each PO BID #30 cap.sprink 12/03/16 [Rx] Allergies/Adverse Reactions: Allergies No Known Allergies Allergy (Verified 10/19/16 10:47) Procedures/tests Complete & Pending: Procedures Performed prior 72 hours Category Date Time Status CT drain abd/retro with cath [CT] Stat Cat Scan 12/01/16 08:08 Completed US retroperitoneal comp [US] Stat Exams 11/30/16 22:00 Completed - Notes to Outpatient Provider Please arrange for patient to undergo colonoscopy for iron deficiency anemia and screening purposes Date of admission: 11/30/16 18:46 Primary care physician: Alexander Quiroz Jr, MD Consults: 11/30/16 20:56 Consult to Interventional Radiology [CONS] Routine Consulting Provider: Radiology Interventional Cols Reason for Consult: Suspected right psoas abscess with size at 4.2 x 2.8 cm. Appreciate drainage/sampling. Will call IR in AM. Call Completed: No 12/01/16 12:26 Consult to Grain Farmworker [CONS] Routine Reason for SW Consult: POA Discharging clinician: Kim Madrid Anticipated date of discharge: 12/03/16 - Patient Status Disposition: Home, Self-Care Condition: Good Functional capacity at discharge: independent ambulation Overall status at discharge: patient is progressing back to baseline - Discharge Instructions Instructions: Anemia (GEN) Follow Up With: Alexander Quiroz Jr, MD [Primary Care Provider] - Additional Instructions: Follow-up with general surgery in clinic and within 1 week for psoas abscess - Diet and Activity Activity: resume usual activities as tolerated Diet: low fat, low cholesterol, low salt diet Hospital course: Mr. Lowry is a 76 year old male history of chronic kidney disease stage IV, hypertension, recent AAA revision surgery was observed in the hospital after presenting with some swelling and pain in his right lumbar paraspinal region. She patient underwent an MRI which shows a fluid collection within the psoas movement. Patient was treated with IV antibiotics initially and then underwent IR guided incision and drainage with placement of a LILY drain into the abscess. So far the abscess fluid has not grown any bacteria although it does appear to be purulent. Patient is feeling much better now and is stable for discharge from a clinical standpoint. He will continue to take antibiotics orally. We will arrange for him to follow up with general surgery in the clinic for further management and removal of LILY drain when appropriate. Patient also has been anemic here most likely due to chronic kidney disease but he also has low iron levels. We will replete orally. Patient also has not had a colonoscopy before and will need one for further evaluation - Time Spent with Patient Total time spent providing and/or coordinating discharge services: Greater than 30 minutes (40 min) - Constitutional Vitals: Temp Pulse Resp BP Pulse Ox 98.3 F 86 16 120/69 96 12/03/16 08:09 12/03/16 08:09 12/03/16 08:09 12/03/16 08:09 12/03/16 08:09 General appearance: Present: cooperative, A&O X 3, pleasant, no acute distress, answers questions appropriately - Respiratory Respiratory exam: Present: CTAB. Absent: accessory muscle use, rales, rhonchi, wheezes - Cardiovascular Cardiovascular exam: Present: RRR, +S1, +S2. Absent: diastolic murmur, gallop, rubs, systolic murmur - GI/Abdominal GI/Abdominal exam: Present: normal bowel sounds, soft, no peritoneal signs. Absent: distended, tenderness - Extremities Exam Extremities exam: Present: tenderness (RIght lumbar paraspinal tenderness improved. LILY drain in place.), warm, radial pulses palpable and symetrical. Absent: calf tenderness, cyanotic, pedal edema - Neurological Exam Neurological exam: Present: CN II-XII intact, oriented X3, no focal deficits. Absent: facial droop, speech deficit - Skin Skin exam: Present: dry, intact - Attending Attestation This document has been at least partially created by [employer] voice recognition technology by Dr. Madrid. Errors in grammar, wording or other phrases may exist. If errors are found after the documentation is signed, they will be addressed individually in the addendum section of this document when appropriate.
[2016-12-03] MEDS ORDERED: Aminoglycoside Consult 1 EACH MC ONE (10:53)
== END 2016-12-03 10:54 | disposition home or self-care (01) ==
LOC: EMEROO 17:20 → 3ANU 17:20 → SUATTDRO 18:46 → 3ANU 19:37
PROVIDERS: ADMIT Internal Medicine; ATTEND Internal Medicine
PROC: IRFLUID (2016-12-01 11:15)

== ENCOUNTER 2017-01-17 16:06 | Observation (INO) ==
[2017-01-17 17:49] LABS: Basophils % 0.1 %; Eosinophils # 0.3 K/mcL (0.0-0.6); Eosinophils % 1.9 %; Hematocrit 33.9 % (37.5-50.1); Hemoglobin 10.8 g/dL (12.9-16.9); Immature Granulocytes % 0.9 % (0-4); Lymphocytes # 3.3 K/mcL (0.6-4.6); Lymphocytes % 23.3 %; Mean Corpuscular HGB Conc 31.9 g/dL (31.6-35.5); Mean Corpuscular Hemoglobin 27.8 pg (28.0-33.3); Mean Corpuscular Volume 87.1 fL (83.0-100.0); Mean Platelet Volume 8.9 fL (9.4-12.4); Monocytes # 1.2 K/mcL (0.0-1.3); Monocytes % 8.7 %; Neutrophils # 9.2 K/mcL (1.6-8.9); Platelet Count 308 K/mcL (140-400); Red Blood Count 3.89 M/mcL (4.19-5.50); Red Cell Distribution Width 15.5 % (11.5-14.5); Segmented Neutrophils % 65.1 %
[2017-01-17 17:57] LABS: Potassium 4.4 mEq/L (3.5-4.5)
--- NOTE | 2017-01-17 18:00 | Emergency Department Note ---
Disposition Clinical Impression: Psoas abscess, right Disposition: Admitted As Inpatient Condition: Good General Adult HPI - General Chief complaint: ED Recheck/Abnormal Lab/Rx Stated complaint: abcess in back Time Seen by Provider: 01/17/17 16:42 Source: patient Limitations: no limitations - History of Present Illness HPI Narrative: 76-year-old male presents to the ED with the chief complaint of recurrent psoas abscess. At the beginning of November he had recently had a infrarenal AAA repair and shortly after developed some right hip and low back pain. He was seen in the ED where they performed an image showing a psoas fluid collection. Interventional radiology placed a percutaneous drain that was eventually removed after CT scan showed resolution of the fluid collection. At that time the fluid grew out Proprionibacterium avidum. He was on clindamycin at that time. Over the past week he has developed worsening/return of pain in that area. He saw his PCP today who ordered a CAT scan which showed a 9 cm x 5 cm x 4.5 cm psoas fluid collection. He is currently trying to get preop clearance for kidney biopsy due to bilateral masses. He is scheduled in the next 2 days for a echocardiogram and nuclear stress test. Denies any abdominal pain, nausea or vomiting. No fevers or chills. No chest pain or shortness of breath Pain Scale: 6 - Related Data Home Medications Medication Instructions Recorded Confirmed Aspirin Enteric Coated [Aspirin EC] 81 mg PO DAILY 11/30/16 11/30/16 Carvedilol 12.5 mg PO BID 11/30/16 01/17/17 Escitalopram [Lexapro] 10 mg PO DAILY 11/30/16 11/30/16 HYDROcodone/Acet 5/325 mg [Hartman 1 - 2 tab PO Q6H PRN 11/30/16 01/17/17 5-325 mg] Lisinopril [Zestril] 5 mg PO DAILY 11/30/16 01/17/17 Simvastatin [Zocor] 40 mg PO HS 11/30/16 01/17/17 Zolpidem [Ambien] 10 mg PO HS PRN 11/30/16 01/17/17 Furosemide [Lasix] 40 mg PO DAILY 01/17/17 01/17/17 Allergies Allergy/AdvReac Type Severity Reaction Status Date / Time No Known Allergies Allergy Verified 01/17/17 16:10 All systems ED: reviewed and negative except as stated. Constitutional: Denies: fever Gastrointestinal: Denies: abdominal pain, nausea, vomiting Musculoskeletal: Reports: back pain (right lower back posteriorly) Neurological: Denies: headache Past Medical History - Past Medical History Attestation: Yes The following information was validated with the patient. Medical history: Reports: aortic aneurysm, arthritis, CHF, peripheral artery disease, renal disease, other Surgical history: Reports: vascular surgery, other Psychiatric history: Reports: anxiety, depression, other - Social History Smoking Status: Current every day smoker Smokeless Tobacco Status: No Alcohol use: Reports: none Drug use: Reports: none Physical Exam General: Appears well, alert and oriented x 3 Cardiovascular: Regular rate and rhythm. Respiratory: Breath sounds clear bilaterally. No cough or distress Abdomen: Soft, nontender. No guarding, rebound or rigidity. No hernias palpated. Eyes: Conjunctiva clear Back: On the left upper back by the scapula there is what feels like a fatty mass in the skin without any surrounding erythema or induration. In the lower back there is some mild reproducible tenderness in the right iliac area but there is no overlying erythema, crepitus or signs of infection. HENT: No oral mucosal lesions. Moist mucous membranes Neuro: Normal motor and sensory in the lower extremities, stands and adenoids and apparently Musculoskeletal: No joint tenderness or swelling Skin: No lesions. No diaphoresis. Normal turgor. Normal color Psych: Appropriate - General Limitations: no limitations General appearance: alert, in no apparent distress Course Course Narrative: Presents with recurrence of right-sided psoas abscess. CT scan today shows recurrence of the right so as complex fluid collection 10 cm x 5 cm x 4.5 cm representing abscess in the correct clinical setting. This previously grew out Propionibacterium avidum. I did speak with the on-call surgeon who states she is available for consult if needed however, this may be better managed by interventional radiology. I discussed with the on-call hospitalist, Dr. Solano who will research the bacteria to tailor antibiotic treatment. He is currently trying to get preop cleared by his network intelligence analyst for a left- sided renal biopsy. His CAT scans have shown bilateral cysts but the left kidney had a mass, described on his October CT with IV contrast. He has not been diagnosed with cancer but they want to biopsy this mass ruled out. In the next 2 days he scheduled to have a nuclear stress test and echocardiogram for preoperative clearance. Patient and family are hoping to have this performed while he is in the hospital to not delay the biopsy or diagnosis. Vital Signs Temperature 98.1 F 01/17/17 16:11 Pulse Rate 75 01/17/17 16:11 Respiratory Rate 18 01/17/17 16:11 Blood Pressure 126/78 01/17/17 16:11 O2 Sat by Pulse Oximetry 97 01/17/17 16:11 Temperature 98.1 F 01/17/17 16:11 Pulse Rate 75 01/17/17 16:11 Respiratory Rate 18 01/17/17 18:56 Blood Pressure 135/101 01/17/17 18:56 O2 Sat by Pulse Oximetry 97 01/17/17 16:11 Oxygen Delivery Oxygen Delivery Room Air Medical Decision Making - Lab Data Result diagrams: 01/17/17 17:35 01/17/17 17:35 Lab Results 01/17/17 01/17/17 Range/Units 17:35 17:35 WBC 14.2 H (4.3-11.1) K/mcL RBC 3.89 L (4.19-5.50) M/mcL Hgb 10.8 L (12.9-16.9) g/dL Hct 33.9 L (37.5-50.1) % MCV 87.1 (83.0-100.0) fL MCH 27.8 L (28.0-33.3) pg MCHC 31.9 (31.6-35.5) g/dL RDW 15.5 H (11.5-14.5) % Plt Count 308 (140-400) K/mcL MPV 8.9 L (9.4-12.4) fL Immature Gran % 0.9 (0-4) % Seg Neutrophils % 65.1 % Lymphocytes % 23.3 % Monocytes % 8.7 % Eosinophils % 1.9 % Basophils % 0.1 % Neutrophils # 9.2 H (1.6-8.9) K/mcL Lymphocytes # 3.3 (0.6-4.6) K/mcL Monocytes # 1.2 (0.0-1.3) K/mcL Eosinophils # 0.3 (0.0-0.6) K/mcL Basophils # 0.0 (0.0-0.2) K/mcL Sodium 140 (136-145) mEq/L Potassium 4.4 (3.5-4.5) mEq/L Chloride 104 (98-109) mEq/L Carbon Dioxide 27 (19-29) mEq/L BUN 41 H (8-26) mg/dL Creatinine 2.78 H (0.72-1.25) mg/dL Est GFR ( Amer) 27 L (> 60) Est GFR (Non-Af Amer) 22 L (> 60) BUN/Creatinine Ratio 15 (6-26) Glucose 86 (70-99) mg/dL Calculated Osmolality 299 (280-300) Calcium 10.0 (8.6-10.8) mg/dL Attestation Statement - Attestation Attestation: I examined this patient and my medical decision-making was reviewed with the DEPUTY CONTROLLER/PA/Advanced Practice Nurse/Resident Physician. I agree with the documented findings, disposition and treatment plan as described except to the extent set forth below. 76-year-old male presents CVA because of back pain. He recently underwent MRI of his lower back discovering that he had a abscess in the right psoas muscle. There is radiology placed a drain and he was treated with antibiotics in the hospital. The drain was pulled sometime later per Dr. Spring. He completed a course of clindamycin. He has had recent increase in back pain and CT was done revealing a recurring 9 cm abscess of the right psoas muscle. He was directed to the emergency department. He denies fevers or chills. No abdominal pain. No dysuria, hematuria or polyuria. Pleasant, elderly male in no apparent distress. Chest is clear to auscultation bilaterally. Cardiac exam regular. Abdomen soft nondistended nontender. Flanks are nontender. There is, suture nontender. The CT was reviewed. White count was 14,000. Case is discussed with surgery as well as hospitalist for admission.
[2017-01-17] MEDS ORDERED: Naloxone 0.4 MG/ML INJ IVP PRN (22:35)
[2017-01-17] MEDS ORDERED: Ondansetron 4 MG/2 ML VIAL IVP PRN (22:36)
[2017-01-17] MEDS ORDERED: Acetaminophen 325 MG TABLET PO PRN (22:36)
--- NOTE | 2017-01-17 23:06 | Internal Med History&Physical ---
Date of Encounter: 01/17/17 Time of Encounter: 22:53 Assessment and Plan (1) Psoas abscess, right Current visit: Yes Status: Acute 1 patient experiencing right hip, right groin leg pain bilaterally past 2 weeks. Patient has history of psoas abscess CT revealed nontender by 5 cm x 4.5 cm psoas fluid collection. We will consult interventional radiology for drain placement 2. Patient does have elevated white count 14.5 he is afebrile and is hemodynamically stable. We will obtain fluid cultures and initiate antibiotics based on sensitivity. past hx of proprionibacterium avidum growth 3 continue with Percocet for pain 4. Nothing by mouth After midnight (2) Acute on chronic kidney failure Current visit: Yes Status: Acute 1 patient creatinine is 2.78 appears baseline is between 1.6-2. This is the highest it has been. We will continue to trend creatinine 2 we will give gentle IV fluids overnight 3 monitor intake and output daily weights 4 avoid nephrotoxins 5 lisinopril and Lasix for now resumed back to baseline (3) Hypertension Current visit: No Status: Chronic 1 presently creatinine elevated We will hold lasix and lisinoproil for now Qualifiers: Hypertension type: essential hypertension Qualified Code(s): I10 - Essential (primary) hypertension (4) DVT prophylaxis Current visit: Yes Status: Acute SCD (5) CHF (congestive heart failure) Current visit: No Status: Chronic 1 last echo 2013 EF of 50% with mild diastolic dysfunction. Presently patient is elevated we will hold Lasix for now 2 monitor intake and output daily weights 3 low sodium diet Qualifiers: Congestive heart failure type: diastolic Congestive heart failure chronicity: chronic Qualified Code(s): I50.32 - Chronic diastolic (congestive ) heart failure Internal Medicine - H&P: HPI Chief complaint: R hip back pain Admitted From: Emergency Dept Plans for Post Hospital Care: Home History of present illness: Mr. Lowry is a 76 year old male past medical history of AAA repair hypertension CHF C K D3 hypertension. At the beginning of November of this year patient had a recent infrarenal AAA repair shortly after he developed some right hip and low back pain. He was seen in the ER where imaging revealed psoas fluid collection. Interventional radiology placed a percutaneous drain. At the time fluid grew out Proprionibacterium avidum. He was placed on clindamycin at that time. Once the fluid had resolved drain was removed. Over the past 2 weeks patient has been developing worsening pain in right groin radiating to right hip and down legs bilaterally. He states the pain is worse on standing and ambulation. The pain increased over the past week patient is concerned because pain similar to previous pain felt during abscess. He went to his PCP today who ordered a CAT scan which showed a 9 cm x 5 cm x 4.5 cm psoas fluid collection. Recently the patient has also been diagnosed with left renal cell carcinoma. He is undergoing preop cardiac workup including echocardiogram and nuclear stress test over the next 2 days. He denies any fevers chills nausea vomiting diarrhea chest pain or shortness of breath. He presented to the ER with the above complaints. According to ER records lab work revealed some leukocytosis with diabetes E 14.2 his creatinine was elevated at 2.78. He was afebrile. ER physician did speak with financial economist surgeon who felt that the most beneficial treatment option at this time would be drain placement into consult interventional radiologist however she is available for consult if needed. The patient has been admitted for further workup and evaluation. Presently the patient denies any pain or discomfort at this time he does not appear to be any respiratory distress and denies any chest pain. His lung sounds are clear throughout heart sounds S1-S2 with no rubs clicks, murmurs noted. No pedal edema noted. His abdomen is soft nontender flanks are nontender he is hemodynamically stable at this time. I reviewed this case with Dr. Tran who agrees with plan Past Med Surg Social Fam HX - Past Medical History Medical history: aortic aneurysm, arthritis, CHF, peripheral artery disease, renal disease, other Psychiatric history: anxiety, depression, other - Past Surgical History Surgical History: vascular surgery, other - Social History Smoking Status: Current every day smoker Packs per day: 1 Smokeless Tobacco Status: No Alcohol use: none Drug use: none - Family History Father Living Status: Hx Family Cardiac Disorders: Yes (CO, HTN) Mother Living Status: Hx Family Cancer: Yes (Stomach) Internal Medicine - H&P: Meds Aspirin Enteric Coated [Aspirin EC] 81 mg PO DAILY 11/30/16 [History] Carvedilol 12.5 mg PO BID 11/30/16 [History] Escitalopram [Lexapro] 10 mg PO DAILY 11/30/16 [History] HYDROcodone/Acet 5/325 mg [[place] 5-325 mg] 1 - 2 tab PO Q6H PRN 11/30/16 [ History] Lisinopril [Zestril] 5 mg PO DAILY 11/30/16 [History] Simvastatin [Zocor] 40 mg PO HS 11/30/16 [History] Zolpidem [Ambien] 10 mg PO HS PRN 11/30/16 [History] Furosemide [Lasix] 40 mg PO DAILY 01/17/17 [History] Allergies No Known Allergies Allergy (Verified 01/17/17 16:10) All Systems PM: A 10-system review of systems was performed and is negative for pertinent findings except as documented above in the HPI. - Constitutional Constitutional: no chills, no fever(s), no night sweats - EENT Eyes: no change in vision, no discharge, no pain, no photophobia Nose, mouth and throat: no dysphagia, no nasal discharge, no neck pain, no sore throat - Cardiovascular Cardiovascular ROS IM: no chest pain, no diaphoresis, no dyspnea, no lightheadedness, no palpitations, no syncope - Respiratory Respiratory: no cough, no dyspnea, no wheezing, no excessive phlegm production - Gastrointestinal Gastrointestinal: no abdominal pain, no diarrhea, no hematemesis, no hematochezia, no melena, no nausea, no vomiting - Musculoskeletal Musculoskeletal ROS IM: back pain, muscle cramps - Neurological Neurological ROS: no confusion, no convulsions, no focal weakness, no numbness, no tingling, no tremor(s) - Constitutional Vitals: Temp Pulse Resp BP Pulse Ox 97.7 F 73 20 133/76 99 01/17/17 20:32 01/17/17 20:32 01/17/17 20:32 01/17/17 20:32 01/17/17 20:32 General appearance: Present: A&O X 3 - Head Head exam: Present: atraumatic, normocephalic - Eye Eye exam: Present: PERRL, conjuntiva pink, sclera anicteric Pupils: Present: PERRL - Neck Neck exam general surgery: Present: supple, trachea midline. Absent: lymphadenopathy - Respiratory Respiratory exam: Present: CTAB. Absent: accessory muscle use, rales, rhonchi, wheezes - Cardiovascular Cardiovascular exam: Present: RRR, +S1, +S2. Absent: diastolic murmur, gallop, rubs, systolic murmur - GI/Abdominal GI/Abdominal exam: Present: normal bowel sounds, soft, no peritoneal signs. Absent: distended, tenderness - Extremities Exam Extremities exam: Present: warm, radial pulses palpable and symetrical. Absent : calf tenderness, cyanotic, pedal edema - Neurological Exam Neurological exam: Present: CN II-XII intact, oriented X3, no focal deficits. Absent: pronater drift, facial droop, speech deficit - Skin Skin exam: Present: dry, intact Internal Med - H&P Results - Labs CBC & Chem 7: 01/17/17 17:35 01/17/17 17:35
[2017-01-17] MEDS: 0.9 % Sodium Chloride 1,000 ML IVC SCH (23:10)
[2017-01-17] MEDS: *HR* HYDROcodone/Acet 5/325 mg TABLET PO PRN (23:11)
[2017-01-18 05:36] LABS: Basophils % 0.2 %; Eosinophils # 0.2 K/mcL (0.0-0.6); Eosinophils % 2.2 %; Hematocrit 29.9 % (37.5-50.1); Hemoglobin 9.3 g/dL (12.9-16.9); Immature Granulocytes % 0.9 % (0-4); Lymphocytes # 2.6 K/mcL (0.6-4.6); Lymphocytes % 23.7 %; Mean Corpuscular HGB Conc 31.1 g/dL (31.6-35.5); Mean Corpuscular Hemoglobin 27.4 pg (28.0-33.3); Mean Corpuscular Volume 88.2 fL (83.0-100.0); Monocytes # 1.1 K/mcL (0.0-1.3); Monocytes % 10.1 %; Neutrophils # 6.9 K/mcL (1.6-8.9); Platelet Count 253 K/mcL (140-400); Red Blood Count 3.39 M/mcL (4.19-5.50); Red Cell Distribution Width 15.5 % (11.5-14.5); Segmented Neutrophils % 62.9 %
[2017-01-18 06:01] LABS: Calcium 9.2 mg/dL (8.6-10.8)
[2017-01-18] MEDS ORDERED: Furosemide 40 MG TABLET PO SCH (09:00)
--- NOTE | 2017-01-18 10:28 | Internal Med Progress Note ---
Date of Encounter: 01/18/17 Time of Encounter: 10:26 - Assessment and plan (1) Psoas abscess, right Current Visit: Yes Status: Acute Assessment and plan: Patient is noted to have recurrent right psoas abscess with worsening right hip and lower back pain and CT findings of possible psoas abscess. Patient had IR guided drain placement in the past with aspirate growing Propionibacterium and was treated with clindamycin, discharged on 12/03/2016. Abscess could be related to abdominal aortic aneurysm repair that was done in August 2016. Will start IV clindamycin after sending aspirate for Gram stain and culture. Plan for IR guided aspiration along with drain placement today. Surgery consult appreciated. We will also consult infectious diseases to assist with duration of antibiotics. Supportive care. Pain control with when necessary oral oxycodone and IV morphine. (2) Acute on chronic kidney failure Current Visit: Yes Status: Acute Assessment and plan: Patient has chronic kidney disease stage IV with baseline serum creatinine around 1.8-2. Likely has a cute kidney injury currently due to prerenal etiology. Continue IV hydration, monitor serum creatinine closely. Avoid new nephrotoxic agents. (3) Lumbar back pain with radiculopathy affecting right lower extremity Current Visit: Yes Status: Chronic (4) History of AAA (abdominal aortic aneurysm) repair Current Visit: Yes Status: Chronic (5) Hypertension Current Visit: Yes Status: Chronic Assessment and plan: Blood pressure noted to be well controlled. Resume home medications. Qualifiers: Hypertension type: essential hypertension Qualified Code(s): I10 - Essential (primary) hypertension (6) CKD (chronic kidney disease) Current Visit: Yes Status: Chronic Qualifiers: Chronic kidney disease stage: stage 4 (severe) Qualified Code(s): N18.4 - Chronic kidney disease, stage 4 (severe) (7) Anemia Current Visit: Yes Status: Chronic Assessment and plan: Has been started on oral ferrous sulfate supplements during previous admission. Also underwent outpatient colonoscopy last month that showed multiple sessile polyps that were excised but no evidence of active bleeding. Qualifiers: Anemia type: other cause Other causes of anemia: chronic disease, kidney Qualified Code(s): N18.9 - Chronic kidney disease, unspecified; D63.1 - Anemia in chronic kidney disease (8) CHF (congestive heart failure) Current Visit: Yes Status: Chronic Assessment and plan: No previous echocardiogram available at this time. Patient has been ordered echocardiogram and pharmacologic nuclear stress test by his inspector wreath as part of preop clearance for possible renal biopsy for presumed renal cell carcinoma. We will obtain the studies while the patient is here. Continue beta emilia and statin, hold diuretics and BYRON inhibitor for now. Qualifiers: Congestive heart failure type: unspecified congestive heart failure type Congestive heart failure chronicity: chronic Qualified Code(s): I50.9 - Heart failure, unspecified - Subjective Interval history: Improving right back and hip pain; able to move his hips and extremities; awaiting IR-guided drainage and drain placement today; no chest pain, shortness of breath but his health has been declining in general since having abdominal aortic aneurysm repair in Aug 2016; - Constitutional Vitals: Temp Pulse Resp BP Pulse Ox 97.8 F 62 18 128/73 97 01/18/17 07:05 01/18/17 07:05 01/18/17 07:05 01/18/17 07:05 01/18/17 07:05 General appearance: Present: A&O X 3, answers questions appropriately - Respiratory Respiratory exam: Present: CTAB. Absent: accessory muscle use, rales, rhonchi, wheezes - Cardiovascular Cardiovascular exam: Present: RRR, +S1, +S2. Absent: diastolic murmur, gallop, rubs, systolic murmur - GI/Abdominal GI/Abdominal exam: Present: normal bowel sounds, soft, no peritoneal signs. Absent: distended, tenderness - Extremities Exam Extremities exam: Present: full ROM, pedal edema (trace B/L ankle edema), warm, radial pulses palpable and symetrical. Absent: calf tenderness, cyanotic - Back Exam Additional comments: improved right lumbar tenderness; no swelling/erythema noted; - Neurological Exam Neurological exam: Present: CN II-XII intact, oriented X3, no focal deficits. Absent: pronater drift, facial droop, speech deficit Internal Medicine: Result - Labs CBC & Chem 7: 01/18/17 05:15 01/18/17 05:15 Labs: Short CBC 01/18/17 Range/Units 05:15 WBC 11.0 (4.3-11.1) K/mcL Hgb 9.3 L D (12.9-16.9) g/dL Hct 29.9 L (37.5-50.1) % Plt Count 253 (140-400) K/mcL Neutrophils # 6.9 (1.6-8.9) K/mcL [facility] 01/18/17 05:15 Sodium 140 Potassium 4.0 Chloride 108 Carbon Dioxide 25 BUN 38 H Creatinine 2.42 H Glucose 109 H Calcium 9.2 Consult Discharge Plan - Plan Referrals: Alexander Quiroz Jr, MD [Primary Care Provider] -
[2017-01-18] MEDS: 0.9 % Sodium Chloride 1,000 ML IVC SCH (11:18)
--- NOTE | 2017-01-18 11:31 | General Surgery Consult Note ---
<Ana Alarcon - Last Filed: 01/18/17 16:35> Date of Encounter: 01/18/17 Time of Encounter: 11:00 Assessment and Plan (1) Psoas abscess, right Current Visit: No Status: Acute Patient has a history of right psoas abscess that was drained on 12/01/16 by interventional radiology resulting in 40 mL of pus that was aspirated and LILY drain placement. Patient presents for evaluation of recurrent psoas abscess given similar symptoms as prior abscess of right flank pain radiating to his groin, his primary care physician ordered a follow-up CT scan with redemonstration of psoas abscess. Impression: Interval recurrence of the right psoas complex fluid collection 9.9 x 4.9 x 4.3 cm representing abscess in the correct clinical setting. Plan: Recurrent psoas abscess Clear liquid diet IV fluids at [75] mL per hour IV antibiotics Supportive care and pain control PPI therapy Magnesium citrate to clear out colon tonight. After decompression of abscess: CT with by mouth and rectal contrast may be considered tomorrow to assess for possible fistula/communication. Consult to interventional radiology for CT-guided aspiration/drainage of abscess with cultures. Patient will need infectious disease consult as patient may be on antibiotics long-term due to recurrent infection upon hospital discharge. Cultures will be obtained and analyzed for sensitivity. The assessment and plan as outlined above was discussed with the patient and/or family members who expressed understanding and agreement. All questions were answered. History of Present Illness Consult date: 01/18/17 Reason for consult: other (psoas abscess) Requesting physician: Soledad Mckeon History of present illness: Mr. Lowry is a 76-year-old male with a past medical history of congestive heart failure, HTN, multiple aortic aneurysms status post repair, stage III kidney failure scheduled for kidney biopsy and possible nephrectomy due to renal mass, renal cell carcinoma, psoas mass previously drained that grew Proprionumbaterium avidum treated with cipro who developed gradual onset of progressively worsening right lower back pain approximately 2-3 weeks ago. Patient describes that his pain is achy in nature begins in the right low back and radiates to his groin a 7 out of 10 pain is exacerbated by movement and improved by laying flat/still and also by taking pain medication. Pain is similar to past abscess. Patient denies: Fever, chills, nausea, vomiting, diarrhea, rashes or sores, hematuria, pyuria, dysuria. CT scan demonstrated: Interval recurrence of the right psoas complex fluid collection. Social history: Smokes 1 pack per day. Denies drinking/alcoholic beverages. Denies other illicit drug use. 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 Psoas abscess october 2016 Past Med Surg Social Fam HX - Past Medical History Medical history: aortic aneurysm, arthritis, CHF, peripheral artery disease, renal disease, other Psychiatric history: anxiety, depression, other - Past Surgical History Surgical History: vascular surgery, other - Social History Smoking Status: Current every day smoker Packs per day: 1 Smokeless Tobacco Status: No Alcohol use: none Drug use: none - Family History Father Living Status: Hx Family Cardiac Disorders: Yes (NH, HTN) Mother Living Status: Hx Family Cancer: Yes (Stomach) Medications and Allergies Aspirin Enteric Coated [Aspirin EC] 81 mg PO DAILY 11/30/16 [History] Carvedilol 12.5 mg PO BID 11/30/16 [History] Escitalopram [Lexapro] 10 mg PO DAILY 11/30/16 [History] HYDROcodone/Acet 5/325 mg [[place] 5-325 mg] 1 - 2 tab PO Q6H PRN 11/30/16 [ History] Lisinopril [Zestril] 5 mg PO DAILY 11/30/16 [History] Simvastatin [Zocor] 40 mg PO HS 11/30/16 [History] Zolpidem [Ambien] 10 mg PO HS PRN 11/30/16 [History] Furosemide [Lasix] 40 mg PO DAILY 01/17/17 [History] Allergies No Known Allergies Allergy (Verified 01/17/17 16:10) Review of Systems All systems PM: A 10-system review of systems was performed and is negative for pertinent findings except as documented above in the HPI. - Constitutional no anorexia, no chills, no fatigue, no fever(s), no headache(s), no lethargy - EENT Nose, mouth and throat: no disequilibrium, no dysphagia, no throat swelling, no tongue swelling - Cardiovascular no chest pain, no diaphoresis, no dyspnea, no palpitations - Respiratory no hemoptysis, no pain on inspiration - Gastrointestinal no bloating, no coffee ground emesis, no constipation, no cramping, no hematemesis, no hematochezia, no loose stools, no melena, no nausea, no vomiting - Genitourinary flank pain (Right sided with radiation to his groin), no hematuria - Musculoskeletal back pain, no myalgias - Integumentary unusual bruising, no changing lesions, no pruritus, no rash, no jaundice - Neurological no syncope, no weakness - Psychiatric no change in appetite, no confusion - Endocrine no excessive sweating, no fatigue, no palpitations - Hematologic/Lymphatic easy bleeding, easy bruising, no lymphadenopathy - Allergic/Immunologic no uticaria General Surgery Exam Initial Vital Signs Temp Pulse Resp BP Pulse Ox 98.1 F 75 18 126/78 97 01/17/17 16:11 01/17/17 16:11 01/17/17 16:11 01/17/17 16:11 01/17/17 16:11 - General physical appearance well developed, well nourished, no distress, moderate pain, obese - Eyes PERRL, normal ocular movement - ENT normal mucosa, atraumatic, normocephalic, CN 2-12 grossly intact - Neck trachea midline - Respiratory normal expansion, normal respiratory effort, clear to auscultation - Cardiovascular Cardiovascular exam: Present: RRR, no murmurs/rubs/gallops. Absent: JVD - Abdomen Abdomen general surgery: Present: bowel sounds present, soft, non tender - Integumentary Integumentary general surgery: Present: warm and dry, no abnormal pigmentation. Absent: diaphoresis, rash - Neurologic Present: CN 2-12 grossly intact, normal coordination - Musculoskeletal Present: normal gait, normal posture - Psychiatric Psychiatric general surgery: Present: A&Ox3, appropriate, oriented to person, oriented to place, oriented to time, speech is normal, memory intact Exam Initial Vital Signs Temp Pulse Resp BP Pulse Ox 98.1 F 75 18 126/78 97 01/17/17 16:11 01/17/17 16:11 01/17/17 16:11 01/17/17 16:11 01/17/17 16:11 Results - Labs 01/18/17 05:15 01/18/17 05:15 Abnormal lab results RBC 3.39 M/mcL (4.19-5.50) L 01/18/17 05:15 Hgb 9.3 g/dL (12.9-16.9) L D 01/18/17 05:15 Hct 29.9 % (37.5-50.1) L 01/18/17 05:15 MCH 27.4 pg (28.0-33.3) L 01/18/17 05:15 MCHC 31.1 g/dL (31.6-35.5) L 01/18/17 05:15 RDW 15.5 % (11.5-14.5) H 01/18/17 05:15 MPV 9.0 fL (9.4-12.4) L 01/18/17 05:15 BUN 38 mg/dL (8-26) H 01/18/17 05:15 Creatinine 2.42 mg/dL (0.72-1.25) H 01/18/17 05:15 Est GFR ( Amer) 32 (> 60) L 01/18/17 05:15 Est GFR (Non-Af Amer) 26 (> 60) L 01/18/17 05:15 Glucose 109 mg/dL (70-99) H 01/18/17 05:15 POC Glucose 117 (58-89) H 01/18/17 05:09 Diabetes panel 01/18/17 Range/Units 05:15 Sodium 140 (136-145) mEq/L Potassium 4.0 (3.5-4.5) mEq/L Chloride 108 (98-109) mEq/L Carbon Dioxide 25 (19-29) mEq/L BUN 38 H (8-26) mg/dL Creatinine 2.42 H (0.72-1.25) mg/dL Glucose 109 H (70-99) mg/dL Calcium 9.2 (8.6-10.8) mg/dL Calcium panel 01/18/17 Range/Units 05:15 Calcium 9.2 (8.6-10.8) mg/dL Pituitary panel 01/18/17 Range/Units 05:15 Sodium 140 (136-145) mEq/L Potassium 4.0 (3.5-4.5) mEq/L Chloride 108 (98-109) mEq/L Carbon Dioxide 25 (19-29) mEq/L BUN 38 H (8-26) mg/dL Creatinine 2.42 H (0.72-1.25) mg/dL Glucose 109 H (70-99) mg/dL Calcium 9.2 (8.6-10.8) mg/dL Adrenal panel 01/18/17 Range/Units 05:15 Sodium 140 (136-145) mEq/L Potassium 4.0 (3.5-4.5) mEq/L Chloride 108 (98-109) mEq/L Carbon Dioxide 25 (19-29) mEq/L BUN 38 H (8-26) mg/dL Creatinine 2.42 H (0.72-1.25) mg/dL Glucose 109 H (70-99) mg/dL Calcium 9.2 (8.6-10.8) mg/dL All other labs normal. Consult Discharge Plan - Plan Referrals: Rachel Magana DO [Partnered Physician] - 02/06/17 1:30 pm <Katia Spring - Last Filed: 01/19/17 10:59> Date of Encounter: 01/18/17 Time of Encounter: 12:00 Assessment and Plan (1) Psoas abscess, right Current Visit: Yes Status: Acute IR to drain, cultures ordered, no surgical intervention required at this time will discuss best imaging options with radiology, clears today, magnesium citrate today to clear bowels Past Med Surg Social Fam HX - Past Medical History Source: patient Review of Systems All systems PM: A 10-system review of systems was performed and is negative for pertinent findings except as documented above in the HPI. General Surgery Exam Initial Vital Signs Temp Pulse Resp BP Pulse Ox 98.1 F 75 18 126/78 97 01/17/17 16:11 01/17/17 16:11 01/17/17 16:11 01/17/17 16:11 01/17/17 16:11 - General physical appearance well developed, well nourished, no distress, moderate pain - Eyes PERRL, normal ocular movement - ENT normal mucosa, atraumatic, normocephalic - Neck trachea midline - Respiratory normal respiratory effort, clear to auscultation - Cardiovascular Cardiovascular exam: Present: RRR, no murmurs/rubs/gallops - Abdomen Abdomen general surgery: Present: bowel sounds present, soft, non tender - Integumentary Integumentary general surgery: Present: warm and dry, no abnormal pigmentation - Neurologic Present: CN 2-12 grossly intact, normal coordination - Musculoskeletal Present: normal gait, normal posture - Psychiatric Psychiatric general surgery: Present: A&Ox3, speech is normal Exam Initial Vital Signs Temp Pulse Resp BP Pulse Ox 98.1 F 75 18 126/78 97 01/17/17 16:11 01/17/17 16:11 01/17/17 16:11 01/17/17 16:11 01/17/17 16:11 Results - Labs 01/19/17 05:04 01/19/17 05:04 Abnormal lab results RBC 3.37 M/mcL (4.19-5.50) L 01/19/17 05:04 Hgb 9.4 g/dL (12.9-16.9) L 01/19/17 05:04 Hct 29.9 % (37.5-50.1) L 01/19/17 05:04 MCH 27.9 pg (28.0-33.3) L 01/19/17 05:04 MCHC 31.4 g/dL (31.6-35.5) L 01/19/17 05:04 RDW 15.3 % (11.5-14.5) H 01/19/17 05:04 MPV 9.1 fL (9.4-12.4) L 01/19/17 05:04 BUN 27 mg/dL (8-26) H D 01/19/17 05:04 Creatinine 1.89 mg/dL (0.72-1.25) H 01/19/17 05:04 Est GFR ( Amer) 42 (> 60) L 01/19/17 05:04 Est GFR (Non-Af Amer) 35 (> 60) L 01/19/17 05:04 POC Glucose 111 (58-89) H 01/18/17 11:37 Diabetes panel 01/19/17 Range/Units 05:04 Sodium 140 (136-145) mEq/L Potassium 4.0 (3.5-4.5) mEq/L Chloride 109 (98-109) mEq/L Carbon Dioxide 23 (19-29) mEq/L BUN 27 H D (8-26) mg/dL Creatinine 1.89 H (0.72-1.25) mg/dL Glucose 93 (70-99) mg/dL Calcium 9.1 (8.6-10.8) mg/dL Calcium panel 01/19/17 Range/Units 05:04 Calcium 9.1 (8.6-10.8) mg/dL Pituitary panel 01/19/17 Range/Units 05:04 Sodium 140 (136-145) mEq/L Potassium 4.0 (3.5-4.5) mEq/L Chloride 109 (98-109) mEq/L Carbon Dioxide 23 (19-29) mEq/L BUN 27 H D (8-26) mg/dL Creatinine 1.89 H (0.72-1.25) mg/dL Glucose 93 (70-99) mg/dL Calcium 9.1 (8.6-10.8) mg/dL Adrenal panel 01/19/17 Range/Units 05:04 Sodium 140 (136-145) mEq/L Potassium 4.0 (3.5-4.5) mEq/L Chloride 109 (98-109) mEq/L Carbon Dioxide 23 (19-29) mEq/L BUN 27 H D (8-26) mg/dL Creatinine 1.89 H (0.72-1.25) mg/dL Glucose 93 (70-99) mg/dL Calcium 9.1 (8.6-10.8) mg/dL All other labs normal. - Imaging CT scan - abdomen: report reviewed, image reviewed CT scan - pelvis: report reviewed, image reviewed - Attending Attestation I examined this patient and my medical decision-making was reviewed with the FINANCIAL MARKET DEALER/PA/Advanced Practice Nurse/Resident Physician. I agree with the documented findings, disposition and treatment plan as described except to the extent set forth below.
--- NOTE | 2017-01-18 15:51 | IR Procedure Note ---
Date of procedure: 01/18/17 Consent Obtained: Written consent Timeout: Correct patient and procedure verified, Correct site verified, Time out performed, Skin prep completed Local anesthetic: Lidocaine 1% Indications: Recurrent right psoas abscess Procedure Performed: Drain placement Site/Technique: 12fr drain placed Results/Findings: 60ml pus out. Tolerated well. Estimated blood loss (cc): 1 Complications: None; Tolerated procedure well Post Procedure Treatment Plan: Monitoring in pts room
[2017-01-18] MEDS: *HR* HYDROcodone/Acet 5/325 mg TABLET PO PRN ×2 (16:25→20:57)
--- NOTE | 2017-01-18 17:29 | Infectious Disease Consult ---
Date of Encounter: 01/18/17 Time of Encounter: 17:28 Assessment and Plan (1) Psoas abscess, right Status: Acute Assessment and plan: initially presented itself on November 30 sp drain placement 45 ml of pus was removed, cultures grew prorionibacterium spp treated with clinda x 10 days as outpatient orally recurrence of abscess on this admission, drain placed by IR, 65 ml of pus drained, cultures sent, results pending continue clinda for now, will change abx if other organisms identified, but high index of suspicion to be the same organism. will have to treat for 4-6 weeks with at least 2 weeks of IV followed by oral regimn d/w family at length monitor labs closely (2) Lumbar back pain with radiculopathy affecting right lower extremity Status: Chronic (3) History of AAA (abdominal aortic aneurysm) repair Status: Chronic Assessment and plan: revision done at [facility] in Aug 29 of this year port of entery was the inguinal area. apparently procedure took 5 hours as per patient had a large hematoma in the inguinal area after the procedure could be source of the prioprionibacterium? (4) CKD (chronic kidney disease) Status: Chronic Qualifiers: Chronic kidney disease stage: stage 4 (severe) Qualified Code(s): N18.4 - Chronic kidney disease, stage 4 (severe) (5) Acute on chronic kidney failure Status: Acute (6) Depression Status: Acute Qualifiers: Depression Type: unspecified Qualified Code(s): F32.9 - Major depressive disorder, single episode, unspecified (7) Sarcoma of left kidney Status: Acute Infectious Disease HPI - Data of Consult Patient: new to practice Consult date: 01/18/17 Requesting Physician: Soledad Mckeon MD Primary Care Provider: Alexander Quiroz Jr, MD - Consult Narrative Reason for consult: psoas abscess History of present illness: Mr. Lowry is a 76 year old male Patient is 76-year-old gentleman admitted to [facility] on 01/17/2015 for right hip and back pain. We are consulted on 01/18/2017 for recurrent psoas abscess on the right status post AAA repair. Patient is 76-year-old gentleman who has an extensive past medical history mentioned below including hypertension, congestive heart failure and abdominal aortic aneurysm status post surgeries in 1997 and recent revision in August 2016 at [facility]. Patient was seen [facility] in November of this year for back pain. MRI was done which showed mild-to- moderate spinal canal stenosis at L4-L5 with severe right L4 foraminal stenosis. Fluid collection with over also was enlargement and edema concerning for abscess. On 12/01/[address]-guided replacement of a 10 Syriac drain with a right psoas abscess. 40 mL of purulent fluid was aspirated from the psoas collection and sent for cultures. Intra-Op cultures grew Propionibacterium avidum. Patient was treated with Zosyn and vancomycin while in -house on discharge was discharged on clindamycin 10 days. Patient had no more drainage from the tube and the tube was removed dip. 2 weeks prior to admission patient started having increasing pain in the right groin area radiating to the right hip and down the legs bilaterally. Patient apparently has been getting progressively worse on standing and ambulation. Patient went to the his PCP today where he underwent a CT scan which showed a fluid collection in the psoas that is 954.5 cm in diameter. Patient was admitted for further workup and evaluation. Since admission patient has had leukocytosis of 14.5 with neutrophil predominance no bands. Patient was also noted to have acute on chronic kidney injury. Patient was evaluated by IR and the new drain was placed and 65, pulse of purulent material was drained and sent for culture. Patient was restarted on clindamycin, we were asked to evaluate the patient and make further recommendations On further questioning, patient tells me after d/c in november, he was doing ok. drain was removed prior to finishing abx course. once antibiotics course was done a few days after he started having back and hip pain. no associated fevers or chills. no nausea or vomiting. he did have some diarrhea thought likely due to the clindamycin which has since resolved. patient denies any diarrhea at this point. he denies any oral thrush. no other complaints. pt has not been started on his meds or antibiotics , it seems that the start date for all meds was entered erroneously . I notified nursing staff and she said she will contact the hospitalist CC: Soledad Mckeon MD Past Med Surg Social Fam HX - Past Medical History Medical history: aortic aneurysm, arthritis, CHF, peripheral artery disease, renal disease, other Psychiatric history: anxiety, depression, other - Past Surgical History Surgical History: vascular surgery, other - Social History Smoking Status: Current every day smoker Packs per day: 1 Smokeless Tobacco Status: No Alcohol use: none Drug use: none - Family History Father Living Status: Hx Family Cardiac Disorders: Yes (LA, HTN) Mother Living Status: Hx Family Cancer: Yes (Stomach) Infectious Disease-CN:Meds Aspirin Enteric Coated [Aspirin EC] 81 mg PO DAILY 11/30/16 [History] Carvedilol 12.5 mg PO BID 11/30/16 [History] Escitalopram [Lexapro] 10 mg PO DAILY 11/30/16 [History] HYDROcodone/Acet 5/325 mg [Sasser 5-325 mg] 1 - 2 tab PO Q6H PRN 11/30/16 [ History] Lisinopril [Zestril] 5 mg PO DAILY 11/30/16 [History] Simvastatin [Zocor] 40 mg PO HS 11/30/16 [History] Zolpidem [Ambien] 10 mg PO HS PRN 11/30/16 [History] Furosemide [Lasix] 40 mg PO DAILY 01/17/17 [History] Allergies No Known Allergies Allergy (Verified 01/17/17 16:10) Review of systems: 10 point ros done, negative other for what's mentioned in the HPI Exam - Constitutional Vitals: Temp Pulse Resp BP Pulse Ox 98.0 F 70 18 149/80 98 01/18/17 16:33 01/18/17 16:33 01/18/17 16:33 01/18/17 16:33 01/18/17 16:33 General appearance: no acute distress, no febrile - Head Head exam: Present: atraumatic, normocephalic - Eye Eye exam: Present: EOMI, PERRL - ENT ENT exam: Present: mucous membranes moist Additional comments: no oral thrush - Neck Neck exam: Present: full ROM, normal inspection - Respiratory Respiratory exam: Present: CTAB. Absent: wheezes - Cardiovascular Cardiovascular exam: Present: RRR, +S1, +S2 - GI/Abdominal GI/Abdominal exam: Present: normal bowel sounds, soft. Absent: tenderness Additional comments: drain placed - Extremities Exam Extremities exam: Present: full ROM, normal inspection - Neurological Exam Neurological exam: Present: alert, oriented X3, no focal deficits - Psychiatric Psychiatric exam: Present: normal affect, normal mood - Skin Skin exam: Absent: rash Infectious Disease CN: Results - Labs CBC & Chem 7: 01/18/17 05:15 01/18/17 05:15 Consult Discharge Plan - Plan Referrals: Rachel Magana DO [Partnered Physician] - 02/06/17 1:30 pm
[2017-01-18] MEDS: Clindamycin 600 MG/50 ML 600 MG/50 ML IV.SOLN IVPB SCH ×2 (18:43→23:07)
[2017-01-18] MEDS: Lactobacillus 1 EACH CAP.SPRINK PO SCH (20:57)
[2017-01-19] MEDS ORDERED: Clindamycin 600 MG/50 ML 600 MG/50 ML IV.SOLN IVPB SCH
[2017-01-19 05:47] LABS: Calcium 9.1 mg/dL (8.6-10.8)
[2017-01-19 05:52] LABS: Basophils % 0.1 %; Eosinophils # 0.2 K/mcL (0.0-0.6); Eosinophils % 1.9 %; Hematocrit 29.9 % (37.5-50.1); Hemoglobin 9.4 g/dL (12.9-16.9); Immature Granulocytes % 0.6 % (0-4); Lymphocytes # 2.2 K/mcL (0.6-4.6); Lymphocytes % 22.2 %; Mean Corpuscular HGB Conc 31.4 g/dL (31.6-35.5); Mean Corpuscular Hemoglobin 27.9 pg (28.0-33.3); Mean Corpuscular Volume 88.7 fL (83.0-100.0); Mean Platelet Volume 9.1 fL (9.4-12.4); Monocytes # 0.9 K/mcL (0.0-1.3); Monocytes % 8.6 %; Neutrophils # 6.6 K/mcL (1.6-8.9); Platelet Count 236 K/mcL (140-400); Red Blood Count 3.37 M/mcL (4.19-5.50); Red Cell Distribution Width 15.3 % (11.5-14.5); Segmented Neutrophils % 66.6 %
[2017-01-19] MEDS: *HR* HYDROcodone/Acet 5/325 mg TABLET PO PRN ×4 (09:02→21:50)
[2017-01-19] MEDS: Lactobacillus 1 EACH CAP.SPRINK PO SCH ×2 (09:02→21:49)
[2017-01-19] MEDS: Clindamycin 600 MG/50 ML 600 MG/50 ML IV.SOLN IVPB SCH ×2 (09:03→16:09)
--- NOTE | 2017-01-19 11:02 | Infectious Disease Progress No ---
Date of Encounter: 01/19/17 Time of Encounter: 11:00 - Assessment and Plan (1) Psoas abscess, right Current Visit: Yes Status: Acute Initially presented itself 11/30/16. Had drain placed. 45ml pus removed. Cultures grew prorionibacterium spp. Treated with 10 days of oral clindamycin. Recurrence of abscess on this admission. Status post CT-guided drain placement 01/18/17 by IR. Report reviewed, 65 ml pus drainage. Cultures sent and are pending. Gram stain shows no bacteria. No blood cultures have been obtained. Clinically, the patient does not appear toxic. Continue Clindamycin IV for now. Will change antibiotics if other organisms are identified, but this is most likely the same organism. Duration of treatment depends on the clinical picture, but likley 4-6 weeks total with at least two weeks of IV antibiotics. Monitor renal function and dose-adjust antibiotics. Consult VAT for EPIV placement. (2) History of AAA (abdominal aortic aneurysm) repair Current Visit: Yes Status: Chronic Revision done 08/29/16 at [facility]. Possible source of prioprionbacterium? (3) Lumbar back pain with radiculopathy affecting right lower extremity Current Visit: Yes Status: Chronic Chronic with worsening likely secondary to psoas muscle abscess. Improved per patient report. (4) Acute on chronic kidney failure Current Visit: Yes Status: Acute Serum creatinine slightly above baseline on admission, but improved back to baseline. Continue to monitor. Dose-adjust antibiotics. 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 No acute events noted overnight. Patient states that overall he feels better. Reports pain 5/10 at the site of the drain placement. Denies fevers, chills, or rigors. Denies chest pain, shortness of breath, or cough. Denies nausea, vomiting, or diarrhea. Denies abdominal pain and states he appetite is okay. Denies urinary complaints. Denies oral thrush or skin lesions. Infect Dis PN-Objective Data - Labs CBC & Chem 7: 01/19/17 05:04 01/19/17 05:04 Labs: Laboratory Results - last 24 hr 01/18/17 01/19/17 01/19/17 11:37 05:04 05:04 WBC 10.0 RBC 3.37 L Hgb 9.4 L Hct 29.9 L MCV 88.7 MCH 27.9 L MCHC 31.4 L RDW 15.3 H Plt Count 236 MPV 9.1 L Immature Gran % 0.6 Seg Neutrophils % 66.6 Lymphocytes % 22.2 Monocytes % 8.6 Eosinophils % 1.9 Basophils % 0.1 Neutrophils # 6.6 Lymphocytes # 2.2 Monocytes # 0.9 Eosinophils # 0.2 Basophils # 0.0 Sodium 140 Potassium 4.0 Chloride 109 Carbon Dioxide 23 BUN 27 H D Creatinine 1.89 H Est GFR ( Amer) 42 L Est GFR (Non-Af Amer) 35 L BUN/Creatinine Ratio 14 Glucose 93 POC Glucose 111 H Calculated Osmolality 295 Calcium 9.1 Cultures: Cultures 01/18/17 15:40 Body Fluid Culture - Preliminary Ascites Fluid - Impressions Impressions Needle Aspiration CT 01/18/17 09:47 IMPRESSION: Successful CT-guided placement of a right psoas abscess strain placement, as described above. A total of 65 mL of purulent material was removed, with a sample sent to the lab for evaluation. D/ / Geoffrey Sherman MD / Geoffrey Sherman MD Interpreting Provider: Geoffrey Sherman MD Exam - Constitutional Vitals: Temp Pulse Resp BP Pulse Ox 98.0 F 74 18 136/65 98 01/19/17 10:00 01/19/17 10:00 01/19/17 10:00 01/19/17 10:00 01/19/17 10:00 General appearance: average body habitus, cooperative, no acute distress - Head Head exam: Present: atraumatic, normal inspection, normocephalic - Eye Eye exam: Present: EOMI, normal appearance, PERRL Pupils: Present: normal accommodation - ENT ENT exam: Present: mucous membranes moist - Neck Neck exam: Present: normal inspection - Respiratory Respiratory exam: Present: CTAB. Absent: rales, respiratory distress, rhonchi, wheezes - Cardiovascular Cardiovascular exam: Present: RRR, +S1, +S2 - GI/Abdominal GI/Abdominal exam: Present: normal bowel sounds, soft. Absent: distended, tenderness - Extremities Exam Extremities exam: Present: normal inspection. Absent: joint swelling, pedal edema, tenderness - Back Exam Additional comments: Bulb drain noted to the right lower back/flank area with small amount of cloudy , serous drainage noted. - Neurological Exam Neurological exam: Present: alert, oriented X3, no focal deficits - Psychiatric Psychiatric exam: Present: normal affect, normal mood - Skin Skin exam: Present: dry, intact, normal color, warm Consult Discharge Plan - Plan Referrals: Rachel Magana DO [Partnered Physician] - 02/06/17 1:30 pm
--- NOTE | 2017-01-19 11:46 | Internal Med Progress Note ---
Date of Encounter: 01/19/17 Time of Encounter: 11:45 - Assessment and plan (1) Psoas abscess, right Current Visit: Yes Status: Acute Assessment and plan: Patient is noted to have recurrent right psoas abscess with worsening right hip and lower back pain and CT findings of possible psoas abscess. Patient had aspirate growing Propionibacterium and was treated with clindamycin, discharged on 12/03/2016. Abscess could be related to abdominal aortic aneurysm repair that was done in August 2016. Status post IR guided drainage and LILY drain placement for psoas abscess on 01/18, with aspiration of about 65 mL purulent material. Continue IV clindamycin for now. ID consult and follow-up appreciated, recommend at least 2 weeks of IV antibiotics followed by 4 weeks of oral antibiotics. Gram stain and culture of the aspirate so far negative. Supportive care. Pain control with when necessary oral oxycodone and IV morphine. Surgery on board. Recommend CT abdomen with oral contrast to rule out possible fistula between colon and abscess; will f/up results; (2) Acute on chronic kidney failure Current Visit: Yes Status: Resolved Assessment and plan: Patient has chronic kidney disease stage IV with baseline serum creatinine around 1.8-2. Serum creatinine improved back to baseline at this time. (3) Lumbar back pain with radiculopathy affecting right lower extremity Current Visit: Yes Status: Chronic (4) History of AAA (abdominal aortic aneurysm) repair Current Visit: Yes Status: Chronic (5) Hypertension Current Visit: Yes Status: Chronic Assessment and plan: Blood pressure noted to be well controlled. Resume home medications. Qualifiers: Hypertension type: essential hypertension Qualified Code(s): I10 - Essential (primary) hypertension (6) CKD (chronic kidney disease) Current Visit: Yes Status: Chronic Qualifiers: Chronic kidney disease stage: stage 4 (severe) Qualified Code(s): N18.4 - Chronic kidney disease, stage 4 (severe) (7) Anemia Current Visit: Yes Status: Chronic Assessment and plan: Has been started on oral ferrous sulfate supplements during previous admission. Also underwent outpatient colonoscopy last month that showed multiple sessile polyps that were excised but no evidence of active bleeding. Qualifiers: Anemia type: other cause Other causes of anemia: chronic disease, kidney Qualified Code(s): N18.9 - Chronic kidney disease, unspecified; D63.1 - Anemia in chronic kidney disease (8) CHF (congestive heart failure) Current Visit: Yes Status: Chronic Assessment and plan: Continue beta emilia and statin, hold diuretics and BYRON inhibitor for now, we will restart gradually. Echocardiogram shows mild to moderate reduction in EF around 45%, left-ventricular dilation, mild left-ventricular diastolic dysfunction. Telemetry monitoring. Qualifiers: Congestive heart failure type: combined Congestive heart failure chronicity : chronic Qualified Code(s): I50.42 - Chronic combined systolic (congestive) and diastolic (congestive) heart failure - Subjective Interval history: Feels better; improved right hip and back pain; awaiting CT abdomen today; received right psoas drain yesterday; - Constitutional Vitals: Temp Pulse Resp BP Pulse Ox 98.0 F 74 18 136/65 98 01/19/17 10:00 01/19/17 10:00 01/19/17 10:00 01/19/17 10:00 01/19/17 10:00 General appearance: Present: A&O X 3, answers questions appropriately - Respiratory Respiratory exam: Present: CTAB. Absent: accessory muscle use, rales, rhonchi, wheezes - Cardiovascular Cardiovascular exam: Present: RRR, +S1, +S2. Absent: diastolic murmur, gallop, rubs, systolic murmur - GI/Abdominal GI/Abdominal exam: Present: normal bowel sounds, soft, no peritoneal signs. Absent: distended, tenderness - Extremities Exam Extremities exam: Present: full ROM, pedal edema, warm, radial pulses palpable and symetrical. Absent: calf tenderness, cyanotic Internal Medicine: Result - Labs CBC & Chem 7: 01/19/17 05:04 01/19/17 05:04 Labs: Short CBC 01/19/17 Range/Units 05:04 WBC 10.0 (4.3-11.1) K/mcL Hgb 9.4 L (12.9-16.9) g/dL Hct 29.9 L (37.5-50.1) % Plt Count 236 (140-400) K/mcL Neutrophils # 6.6 (1.6-8.9) K/mcL BMP 01/19/17 05:04 Sodium 140 Potassium 4.0 Chloride 109 Carbon Dioxide 23 BUN 27 H D Creatinine 1.89 H Glucose 93 Calcium 9.1 - Impressions Impressions Needle Aspiration CT 01/18/17 09:47 IMPRESSION: Successful CT-guided placement of a right psoas abscess strain placement, as described above. A total of 65 mL of purulent material was removed, with a sample sent to the lab for evaluation. D/ / Geoffrey Sherman MD / Geoffrey Sherman MD Interpreting Provider: Geoffrey Sherman MD Consult Discharge Plan - Plan Referrals: Rachel Magana DO [Partnered Physician] - 02/06/17 1:30 pm
--- NOTE | 2017-01-19 19:44 | General Surgery Progress Note ---
Date of Encounter: 01/19/17 Time of Encounter: 14:00 - Assessment and Plan (1) Psoas abscess, right Current Visit: Yes Status: Acute Patient has a history of right psoas abscess that was drained on 12/01/16 by interventional radiology resulting in 40 mL of pus that was aspirated and LILY drain placement. With cultures that grew cultures grew prorionibacterium spp. Patient presents for evaluation of recurrent psoas abscess given similar symptoms as prior abscess of right flank pain radiating to his groin, his primary care physician ordered a follow-up CT scan with redemonstration of psoas abscess. Impression: Interval recurrence of the right psoas complex fluid collection 9.9 x 4.9 x 4.3 cm representing abscess in the correct clinical setting. Interventional radiology perfored a CT-guided aspiration/drainage of abscess on with cultures sent and initially drained purulent material. Needle Aspiration CT 01/18/17 09:47 IMPRESSION: Successful CT-guided placement of a right psoas abscess strain placement, as described above. A total of 65 mL of purulent material was removed, with a sample sent to the lab for evaluation. Repeat CT performed today 01/19/17 with contrast by mouth and rectal contrast did not demonstrate possible fistula/communication. Abdomen/Pelvis CT 01/19/17 13:45 IMPRESSION: The percutaneous right psoas drainage catheter is in appropriate position with complete resolution of the previously seen psoas fluid collection. Multiple incidental findings, stable in appearance. No acute process. Today, patient has been up around the unit ambulating and expresses minimal pain just at incision site with resolution of pain on admission. Patient has been tolerating his cardiac diet without nausea or vomiting. Patient has been urinating without difficulty. Laboratory results demonstrate stable H/H. Patient has had multiple bowel movements and passage of gas while here. On physical exam, patient has tenderness over incision site however he does not have any abdominal pain, rigidity, guarding, rebound or signs of peritonitis. Nonsurgical abdomen. Vital stable. Afebrile. Nonfocal neurologic exam. Patient is stable from a surgical standpoint and may begin discharge planning per hospitalist. Plan: Recurrent psoas abscess AFB culture final result: No Acid fast bacilli observed Continue cardiac diet Continue IV antibiotics per Infectious disease recommendations Supportive care and pain control PPI therapy Daily drain care with patient education prior to discharge. Drain care: -Wash around drain with soap and water in the shower and pat dry daily. - Apply 4 x 4 gauze and tape to secure daily. -Empty drain 3 times daily and as needed if full and record amount on drain record. - Bring drain record to follow up appointment with Dr. Spring Patient is stable from a surgical standpoint. Surgery will sign out. Thank you for the consult. 1 week follow up with Dr. Spring for drain management. The assessment and plan as outlined above was discussed with the patient and/or family members who expressed understanding and agreement. All questions were answered. Subjective Patient reports: no new complaints, feels better, pain is less, tolerating a regular diet (Cardiac diet), voiding w/o difficulty, flatus, bowel movement, afebrile Narrative: The patient was seen and examined. Patient reports that he noticed when he woke up that the area around his incision site was sore. Tonight, patient would like a wedge or pilllows to prop up against his back to prevent him from rolling over onto the drain and incision site. Patient reports that he has been up ambulating around the unit without difficulty. He is voiding without difficulty. He has had multiple bowel movements and pass gas since his admission. Patient denies any pain, fever, chills, nausea, vomiting. He has been tolerating his cardiac diet well. Patient states that he is familiar with the drain and feels comfortable taking care of at home. Patient is in good spirits and is very thankful for the care he has received here. no new issues, no pain in right back, drain with purulent drainage Objective Vital Signs - Last 8 Hours Temp Pulse Resp BP Pulse Ox 01/19/17 16:00 97.8 F 71 18 148/78 98 Intake and Output 01/19/17 01/19/17 01/19/17 07:59 15:59 23:59 Intake Total 1620 / 1620 110 / 110 120 / 120 Output Total 515 / 515 40 / 40 10 / 10 Balance 1105 / 1105 70 / 70 110 / 110 Intake: IV Fluids 300 / 300 50 / 50 0.9 % Sodium Chloride 1, 250 / 250 000 ML @ 75 mls/hr IVC . [id number] [facility] Rx#: [id number] Cleocin Premix 600 MG/50 50 / 50 50 / 50 ML 600 mg In 50 ml @ 50 mls/hr IVPB Q8HR [facility] Rx#: [id number] Oral 1320 / 1320 60 / 60 120 / 120 Output: Urine 500 / 500 Wound Drainage Right Lateral Other: Meal Lunch Dinner Percent of Meal Consumed 25% Stool Size Moderate # Voids 1 # Bowel Movements 4 Weight 96.887 kg Patient Weight 01/19/17 23:59 Weight 96.887 kg - General physical appearance well developed, well nourished, no distress, no pain, obese - Eyes PERRL, normal ocular movement - ENT normal nares, normal mucosa, atraumatic, normocephalic, CN 2-12 grossly intact - Neck Neck exam: no masses, trachea midline, no venous distension - Respiratory normal expansion, normal respiratory effort, clear to auscultation - Cardiovascular Cardiovascular exam: Present: RRR, no murmurs/rubs/gallops. Absent: JVD - Abdomen Abdomen: Present: bowel sounds present, soft, non tender. Absent: tympanic, distended, tender, guarding, rebound, rigid, peritoneal Additional Comments: A 12-Romanian drain is present on the right flank Draining purulence and serous fluid - Incision Incision: Present: clean and dry, intact - Integumentary no rash, no abnormal pigmentation - Neurologic CN 2-12 grossly intact, normal coordination, normal sensation - Musculoskeletal normal gait, normal posture - Psychiatric oriented to time, oriented to person, oriented to place, speech is normal, memory intact - Labs 01/19/17 05:04 01/19/17 05:04 Diabetes panel 01/19/17 Range/Units 05:04 Sodium 140 (136-145) mEq/L Potassium 4.0 (3.5-4.5) mEq/L Chloride 109 (98-109) mEq/L Carbon Dioxide 23 (19-29) mEq/L BUN 27 H D (8-26) mg/dL Creatinine 1.89 H (0.72-1.25) mg/dL Glucose 93 (70-99) mg/dL Calcium 9.1 (8.6-10.8) mg/dL Calcium panel 01/19/17 Range/Units 05:04 Calcium 9.1 (8.6-10.8) mg/dL Pituitary panel 01/19/17 Range/Units 05:04 Sodium 140 (136-145) mEq/L Potassium 4.0 (3.5-4.5) mEq/L Chloride 109 (98-109) mEq/L Carbon Dioxide 23 (19-29) mEq/L BUN 27 H D (8-26) mg/dL Creatinine 1.89 H (0.72-1.25) mg/dL Glucose 93 (70-99) mg/dL Calcium 9.1 (8.6-10.8) mg/dL Adrenal panel 01/19/17 Range/Units 05:04 Sodium 140 (136-145) mEq/L Potassium 4.0 (3.5-4.5) mEq/L Chloride 109 (98-109) mEq/L Carbon Dioxide 23 (19-29) mEq/L BUN 27 H D (8-26) mg/dL Creatinine 1.89 H (0.72-1.25) mg/dL Glucose 93 (70-99) mg/dL Calcium 9.1 (8.6-10.8) mg/dL Consult Discharge Plan - Plan Additional Instructions: Drain care: -Wash around drain with soap and water in the shower and pat dry daily. - Apply 4 x 4 gauze and tape to secure daily. -Empty drain 3 times daily and as needed if full and record amount on drain record. - Bring drain record to follow up in [address] Spring. Referrals: Rachel Magana DO [Partnered Physician] - 02/06/17 1:30 pm Katia Spring MD [Partnered Physician] - (Follow up in 1 week. s/p Psoas abscess drainage for drain management. ) - Attending Attestation I examined this patient and my medical decision-making was reviewed with the [employer]TER/PA/Advanced Practice Nurse/Resident Physician. I agree with the documented findings, disposition and treatment plan as described except to the extent set forth below.
[2017-01-20] MEDS: Clindamycin 600 MG/50 ML 600 MG/50 ML IV.SOLN IVPB SCH ×3 (00:14→16:24)
[2017-01-20] MEDS: Lactobacillus 1 EACH CAP.SPRINK PO SCH ×2 (08:12→20:53)
[2017-01-20] MEDS: *HR* HYDROcodone/Acet 5/325 mg TABLET PO PRN ×3 (12:29→20:56)
--- NOTE | 2017-01-20 15:05 | Internal Med Progress Note ---
Date of Encounter: 01/20/17 Time of Encounter: 11:30 - Assessment and plan (1) Psoas abscess, right Current Visit: Yes Status: Acute Assessment and plan: Patient is noted to have recurrent right psoas abscess with worsening right hip and lower back pain and CT findings of possible psoas abscess. Patient had aspirate growing Propionibacterium and was treated with clindamycin, discharged on 12/03/2016. Abscess could be related to abdominal aortic aneurysm repair that was done in August 2016. Status post IR guided drainage and LILY drain placement for psoas abscess on 01/18, with aspiration of about 65 mL purulent material. Continue IV clindamycin for now. ID consult and follow-up appreciated, recommend at least 2 weeks of IV antibiotics followed by 4 weeks of oral antibiotics. Gram stain and culture of the aspirate so far negative. Anaerobic culture pending. Supportive care. Pain control with when necessary oral oxycodone and IV morphine. CT abdomen with oral contrast completed, showed no fistula between colon and abscess; surgery currently signed off, no further recommendations. Recommend outpatient follow-up for psoas drain management. (2) Acute on chronic kidney failure Current Visit: Yes Status: Resolved Assessment and plan: Patient has chronic kidney disease stage IV with baseline serum creatinine around 1.8-2. Serum creatinine improved back to baseline at this time. (3) Lumbar back pain with radiculopathy affecting right lower extremity Current Visit: Yes Status: Chronic (4) History of AAA (abdominal aortic aneurysm) repair Current Visit: Yes Status: Chronic (5) Hypertension Current Visit: Yes Status: Chronic Assessment and plan: Blood pressure noted to be well controlled. Resume home medications. Qualifiers: Hypertension type: essential hypertension Qualified Code(s): I10 - Essential (primary) hypertension (6) CKD (chronic kidney disease) Current Visit: Yes Status: Chronic Qualifiers: Chronic kidney disease stage: stage 4 (severe) Qualified Code(s): N18.4 - Chronic kidney disease, stage 4 (severe) (7) Anemia Current Visit: Yes Status: Chronic Qualifiers: Anemia type: other cause Other causes of anemia: chronic disease, kidney Qualified Code(s): N18.9 - Chronic kidney disease, unspecified; D63.1 - Anemia in chronic kidney disease (8) CHF (congestive heart failure) Current Visit: Yes Status: Chronic Assessment and plan: Continue beta emilia and statin, hold diuretics and BYRON inhibitor for now, we will restart gradually. Echocardiogram shows mild to moderate reduction in EF around 45%, left-ventricular dilation, mild left-ventricular diastolic dysfunction. Telemetry monitoring. Qualifiers: Congestive heart failure type: combined Congestive heart failure chronicity : chronic Qualified Code(s): I50.42 - Chronic combined systolic (congestive) and diastolic (congestive) heart failure - Subjective Interval history: Reports some soreness at the drain exit site; no fever/chills, nausea or diarrhea. - Constitutional Vitals: Temp Pulse Resp BP Pulse Ox 98.0 F 79 18 148/76 97 01/20/17 12:28 01/20/17 12:28 01/20/17 12:28 01/20/17 12:28 01/20/17 12:28 General appearance: Present: A&O X 3, answers questions appropriately - Respiratory Respiratory exam: Present: CTAB. Absent: accessory muscle use, rales, rhonchi, wheezes - Cardiovascular Cardiovascular exam: Present: RRR, +S1, +S2. Absent: diastolic murmur, gallop, rubs, systolic murmur - Extremities Exam Extremities exam: Present: pedal edema, warm, radial pulses palpable and symetrical. Absent: calf tenderness, cyanotic - Back Exam Additional comments: Right psoas drain with 15-20 mL bloody fluid Internal Medicine: Result - Labs CBC & Chem 7: 01/19/17 05:04 01/19/17 05:04 - Impressions Impressions Abdomen/Pelvis CT 01/19/17 13:45 IMPRESSION: The percutaneous right psoas drainage catheter is in appropriate position with complete resolution of the previously seen psoas fluid collection. Multiple incidental findings, stable in appearance. No acute process. D/ / Samanta Garcia MD / Samanta Garcia MD Interpreting Provider: Samanta Garcia MD Consult Discharge Plan - Plan Additional Instructions: Drain care: -Wash around drain with soap and water in the shower and pat dry daily. - Apply 4 x 4 gauze and tape to secure daily. -Empty drain 3 times daily and as needed if full and record amount on drain record. - Bring drain record to follow up in [address] Spring. Referrals: Katia Spring MD [Partnered Physician] - (Follow up in 1 week. s/p Psoas abscess drainage for drain management. ) Rachel Magana DO [Partnered Physician] - 02/06/17 1:30 pm
[2017-01-21] MEDS: Clindamycin 600 MG/50 ML 600 MG/50 ML IV.SOLN IVPB SCH ×3 (00:15→19:43)
[2017-01-21] MEDS: Lactobacillus 1 EACH CAP.SPRINK PO SCH ×2 (08:30→21:34)
--- NOTE | 2017-01-21 12:27 | Internal Med Progress Note ---
Date of Encounter: 01/21/17 Time of Encounter: 12:26 - Assessment and plan (1) Psoas abscess, right Current Visit: Yes Status: Acute Assessment and plan: Patient is noted to have recurrent right psoas abscess with worsening right hip and lower back pain and CT findings of possible psoas abscess. Patient had aspirate growing Propionibacterium and was treated with clindamycin, discharged on 12/03/2016. Abscess could be related to abdominal aortic aneurysm repair that was done in August 2016. Status post IR guided drainage and LILY drain placement for psoas abscess on 01/18, with aspiration of about 65 mL purulent material. Continue IV clindamycin for now. ID consult and follow-up appreciated, recommend at least 2 weeks of IV antibiotics followed by 4 weeks of oral antibiotics. Gram stain and culture of the aspirate so far negative. Anaerobic culture so far shows no growth. Supportive care. Pain control with when necessary oral oxycodone. Discharge planning in a.m. (2) Acute on chronic kidney failure Current Visit: Yes Status: Resolved (3) Lumbar back pain with radiculopathy affecting right lower extremity Current Visit: Yes Status: Chronic (4) History of AAA (abdominal aortic aneurysm) repair Current Visit: Yes Status: Chronic (5) Hypertension Current Visit: Yes Status: Chronic Assessment and plan: Blood pressure noted to be well controlled. Resume home medications. Qualifiers: Hypertension type: essential hypertension Qualified Code(s): I10 - Essential (primary) hypertension (6) CKD (chronic kidney disease) Current Visit: Yes Status: Chronic Qualifiers: Chronic kidney disease stage: stage 4 (severe) Qualified Code(s): N18.4 - Chronic kidney disease, stage 4 (severe) (7) Anemia Current Visit: Yes Status: Chronic Assessment and plan: Has been started on oral ferrous sulfate supplements during previous admission. Also underwent outpatient colonoscopy last month that showed multiple sessile polyps that were excised but no evidence of active bleeding. Qualifiers: Anemia type: other cause Other causes of anemia: chronic disease, kidney Qualified Code(s): N18.9 - Chronic kidney disease, unspecified; D63.1 - Anemia in chronic kidney disease (8) CHF (congestive heart failure) Current Visit: Yes Status: Chronic Assessment and plan: Continue beta emilia and statin, hold diuretics and BYRON inhibitor for now, we will restart gradually. Telemetry monitoring. Qualifiers: Congestive heart failure type: combined Congestive heart failure chronicity : chronic Qualified Code(s): I50.42 - Chronic combined systolic (congestive) and diastolic (congestive) heart failure - Subjective Interval history: No new complaints; no chest pain, dyspnea; continues to have pale purulent discharge from right psoas drain; - Constitutional Vitals: Temp Pulse Resp BP Pulse Ox 98.2 F 89 18 132/74 98 01/21/17 11:03 01/21/17 11:03 01/21/17 11:03 01/21/17 11:03 01/21/17 11:03 General appearance: Present: A&O X 3, answers questions appropriately - Respiratory Respiratory exam: Present: CTAB. Absent: accessory muscle use, rales, rhonchi, wheezes - Cardiovascular Cardiovascular exam: Present: RRR, +S1, +S2. Absent: diastolic murmur, gallop, rubs, systolic murmur - GI/Abdominal GI/Abdominal exam: Present: normal bowel sounds, soft, no peritoneal signs. Absent: distended, tenderness Additional comments: right psoas LILY drain with 10cc purulent drainage Internal Medicine: Result - Labs CBC & Chem 7: 01/19/17 05:04 01/19/17 05:04 Consult Discharge Plan - Plan Additional Instructions: Drain care: -Wash around drain with soap and water in the shower and pat dry daily. - Apply 4 x 4 gauze and tape to secure daily. -Empty drain 3 times daily and as needed if full and record amount on drain record. - Bring drain record to follow up in [address] Spring. Referrals: Katia Spring MD [Partnered Physician] - (Follow up in 1 week. s/p Psoas abscess drainage for drain management. ) Rachel Magana DO [Partnered Physician] - 02/06/17 1:30 pm
[2017-01-21] MEDS: *HR* HYDROcodone/Acet 5/325 mg TABLET PO PRN (21:34)
[2017-01-22] MEDS: Clindamycin 600 MG/50 ML 600 MG/50 ML IV.SOLN IVPB SCH ×2 (03:57→11:18)
[2017-01-22] MEDS: Lactobacillus 1 EACH CAP.SPRINK PO SCH (07:49)
[2017-01-22 08:24] VITALS: BP 121/43
--- NOTE | 2017-01-22 11:52 | Discharge Summary ---
Date of Encounter: 01/22/17 Time of Encounter: 11:50 - Discharge Diagnosis (1) Psoas abscess, right Priority: Primary Status: Acute (2) Acute on chronic kidney failure Priority: Primary Status: Resolved (3) Lumbar back pain with radiculopathy affecting right lower extremity Priority: Secondary Status: Chronic (4) History of AAA (abdominal aortic aneurysm) repair Priority: Secondary Status: Chronic (5) Hypertension Priority: Secondary Status: Chronic Qualifiers: Hypertension type: essential hypertension Qualified Code(s): I10 - Essential (primary) hypertension (6) CKD (chronic kidney disease) Priority: Secondary Status: Chronic Qualifiers: Chronic kidney disease stage: stage 4 (severe) Qualified Code(s): N18.4 - Chronic kidney disease, stage 4 (severe) (7) Anemia Priority: Secondary Status: Chronic Qualifiers: Anemia type: other cause Other causes of anemia: chronic disease, kidney Qualified Code(s): N18.9 - Chronic kidney disease, unspecified; D63.1 - Anemia in chronic kidney disease (8) CHF (congestive heart failure) Priority: Secondary Status: Chronic Qualifiers: Congestive heart failure type: combined Congestive heart failure chronicity : chronic Qualified Code(s): I50.42 - Chronic combined systolic (congestive) and diastolic (congestive) heart failure - Discharge Medications Prescriptions: Lactobacillus [Culturelle] 1 each PO BID #60 [email or web address] Home Medications: Aspirin Enteric Coated [Aspirin EC] 81 mg PO DAILY 11/30/16 [History] Carvedilol 12.5 mg PO BID 11/30/16 [History] Escitalopram [Lexapro] 10 mg PO DAILY 11/30/16 [History] HYDROcodone/Acet 5/325 mg [[place] 5-325 mg] 1 - 2 tab PO Q6H PRN 11/30/16 [ History] Lisinopril [Zestril] 5 mg PO DAILY 11/30/16 [History] Simvastatin [Zocor] 40 mg PO HS 11/30/16 [History] Zolpidem [Ambien] 10 mg PO HS PRN 11/30/16 [History] Furosemide [Lasix] 40 mg PO DAILY 01/17/17 [History] Lactobacillus [Culturelle] 1 each PO BID #60 [email or web address] 01/22/17 [Rx] Allergies/Adverse Reactions: Allergies No Known Allergies Allergy (Verified 01/17/17 16:10) Procedures/tests Complete & Pending: Procedures Performed prior 72 hours Category Date Time Status CT abd pelvis wo iv oral only [CT] Stat Cat Scan 01/19/17 13:45 Completed Date of admission: 01/17/17 18:46 Primary care physician: Alexander Quiroz Jr, MD Consults: 01/17/17 22:33 Consult to Interventional Radiology [CONS] Routine Consulting Provider: Radiology Interventional [place] Reason for Consult: drain placement for right sided psoas abscess Time Notified: 22:35 Call Completed: No 01/18/17 10:24 Consult to Surgery [CONS] Routine Consulting Provider: Surgery [facility] Reason for Consult: Right psoas abscess, Recurrent Call Completed: Yes 01/18/17 14:41 Consult to Infectious Diseases [CONS] Routine Consulting Provider: Infectious Disease [place] Reason for Consult: Recurrent psoas abscess on the right s/p AAA repair Call Completed: No 01/19/17 08:24 Consult to Occupational Therapy [CONS] Routine Comment: Evaluate, develop and implement POC Reason for Consult: Weakness, deconditioning, CHF Consult to Physical Therapy [CONS] Routine Comment: Evaluate, develop and implement POC Reason for Consult: Weakness, deconditioning, CHF 01/19/17 09:22 Consult to Invasive Line Access Team [CONS] Routine Reason for Consult: HOME ATB Line Type: EPIV Discharging clinician: Soledad Mckeon Anticipated date of discharge: 01/22/17 - Patient Status Disposition: Home Health Service Condition: Good Functional capacity at discharge: independent ambulation Overall status at discharge: patient is progressing back to baseline - Discharge Instructions Instructions: Heart Failure (DC), Depression (DC) Follow Up With: Katia Spring MD [Partnered Physician] - 02/01/17 10:15 am (Follow up in 1 week. s/p Psoas abscess drainage for drain management. ) Rachel Magana DO [Partnered Physician] - 02/06/17 1:30 pm Venkat He MD [Partnered Physician] - 01/31/17 1:00 pm Additional Instructions: F/up with in 1-2 weeks F/up with SEGUNDO Waters in 1 week Drain care: -Wash around drain with soap and water in the shower and pat dry daily. - Apply 4 x 4 gauze and tape to secure daily. -Empty drain 3 times daily and as needed if full and record amount on drain record. - Bring drain record to follow up in [address] Spring. - Diet and Activity Activity: resume usual activities as tolerated Diet: low fat, low cholesterol, low salt diet, other (renal diet) Hospital course: Mr. Lowry is a 76 year old male with the above medical problems, admitted with severe right hip and lower back pain. Patient was recently admitted and treated with 10-day course of PO Clindamycin for right Psoas abscess, thought to be resulting from recent AAA repair. CT abdomen/pelvis during this admission again showed a possible abscess in right psoas muscle and patient underwent IR CT- guided aspiration of the abscess with 65cc pus aspiration, and had LILY drain left in place. He was started on IV Clindamycin after aspiration, aerobic cultures have been negative, and anaerobic cultures have so far remained negative. ID was consulted and recommend at least 2 weeks of IV antibiotics, followed by 4 weeks of PO antibiotics, and he will f/up with ID as an outpatient. Surgery has been on board and recommend CT abdomen/pelvis, which was done and showed no fistula between colon and psoas abscess. Patient also had acute on chronic renal failure at admission, which improved with IV hydration and holding his diuretics and ARB, which are being resumed at discharge. Patient is currently medically stable for discharge with IV antibiotics at home; [facility] referral is completed for this. - Time Spent with Patient Total time spent providing and/or coordinating discharge services: Greater than 30 minutes (50 min) - Constitutional Vitals: Temp Pulse Resp BP Pulse Ox 98.1 F 79 18 121/43 95 01/22/17 08:21 01/22/17 08:21 01/22/17 08:21 01/22/17 08:21 01/22/17 08:21 General appearance: Present: A&O X 3, answers questions appropriately - Back Exam Additional comments: LILY drain in place, with 15cc thin yellowish purulent fluid;
--- NOTE | 2017-01-22 11:55 | Physician Discharge Referral ---
Home Health/Hosp Referral Info Transfer to: Home Health Attending Provider: Soledad Mckeon Provider in Charge Post Discharge: PCP - Diagnosis (1) Psoas abscess, right Priority: Primary Status: Acute (2) Acute on chronic kidney failure Priority: Primary Status: Resolved (3) Lumbar back pain with radiculopathy affecting right lower extremity Priority: Secondary Status: Chronic (4) History of AAA (abdominal aortic aneurysm) repair Priority: Secondary Status: Chronic (5) Hypertension Priority: Secondary Status: Chronic (6) CKD (chronic kidney disease) Priority: Secondary Status: Chronic (7) Anemia Priority: Secondary Status: Chronic (8) CHF (congestive heart failure) Priority: Secondary Status: Chronic - Respiratory Orders Smoking Cessation: Smoking cessation has been advised. For more information, call the [employer] Tobacco Quit Line at 5-079-AVAA-NOW. - Diet/Nutrition Diet/Nutrition Orders: Renal, Cardiac - Activity Activity Orders: Ambulate - Services Needed Following services are medically necessary services: Nursing, Physical Therapy, Occupational Therapy, Home Infusion Home Care Orders: Drain care: -Wash around drain with soap and water in the shower and pat dry daily. - Apply 4 x 4 gauze and tape to secure daily. -Empty drain 3 times daily and as needed if full and record amount on drain record. - Bring drain record to follow up in [address] Spring. IV antibiotic infusion- Clindamycin Q8hrly for 11 days - Transfer Medications Prescriptions: Lactobacillus [Culturelle] 1 each PO BID #60 [email or web address] Home Medications: Aspirin Enteric Coated [Aspirin EC] 81 mg PO DAILY 11/30/16 [History] Carvedilol 12.5 mg PO BID 11/30/16 [History] Escitalopram [Lexapro] 10 mg PO DAILY 11/30/16 [History] HYDROcodone/Acet 5/325 mg [Garfield 5-325 mg] 1 - 2 tab PO Q6H PRN 11/30/16 [ History] Lisinopril [Zestril] 5 mg PO DAILY 11/30/16 [History] Simvastatin [Zocor] 40 mg PO HS 11/30/16 [History] Zolpidem [Ambien] 10 mg PO HS PRN 11/30/16 [History] Furosemide [Lasix] 40 mg PO DAILY 01/17/17 [History] Lactobacillus [Culturelle] 1 each PO BID #60 russ 01/22/17 [Rx] Allergies/Adverse Reactions: Allergies No Known Allergies Allergy (Verified 01/17/17 16:10) Certification: Further, I certify that my clinical findings support that this patient is homebound (i.e. absences from home require considerable and taxing effort and are for medical reasons or mandaeism services or infrequently or short duration when for other reasons) because: Homebound Reason: Patient requires assistance of a person or device to safely leave home, Leaving home requires considerable and taxing effort due to condition Attestation: My signature below is to certify that this patient is under my care and that I, or nurse practitioner, or a physician's staff assistant working with me, has a face-to -face encounter with this patient.
--- NOTE | 2017-01-22 13:25 | Infectious Disease Progress No ---
Date of Encounter: 01/22/17 Time of Encounter: 13:18 - Assessment and Plan (1) Psoas abscess, right Current Visit: Yes Status: Acute Initially presented itself 11/30/16. Had drain placed. 45ml pus removed. Cultures grew prorionibacterium spp. Treated with 10 days of oral clindamycin. Recurrence of abscess on this admission. Status post CT-guided drain placement 01/18/17 by IR. Report reviewed, 65 ml pus drainage. Cultures sent and are negative. Gram stain shows no bacteria. I called micro and requested they repeat the gram stain and culture. Repeat gram stain shows WBC, but no bacteria. If this is an anaerobic bacteria, it is likely that it will take longer to grow. No blood cultures have been obtained and are NGTD x 2 sets. Clinically, the patient does not appear toxic. Repeat CT scan shows the drain is in the appropriate position with complete resolution of the previously seen fluid collection. Continue Clindamycin IV 600mg IV Q8H. Will continue to check the cultures and adjust medications if needed. Duration of treatment depends on the clinical picture, but likley 4-6 weeks total with at least two to four weeks of IV antibiotics. Monitor renal function and dose-adjust antibiotics. EPIV inserted 01/16/17. Get baseline ESR and CRP now. Get weekly labs every Sunday: CBC, BMP, ESR, and CRP. Weekly Powerglide care per protocol. Follow up with ID 01/31/17 at 1300. (2) History of AAA (abdominal aortic aneurysm) repair Current Visit: Yes Status: Chronic [facility] Possible source of prioprionbacterium? (3) Lumbar back pain with radiculopathy affecting right lower extremity Current Visit: Yes Status: Chronic Chronic with worsening likely secondary to psoas muscle abscess. Resolved. (4) Acute on chronic kidney failure Current Visit: Yes Status: Resolved Serum creatinine slightly above baseline on admission, but improved back to baseline. Continue to monitor. Dose-adjust antibiotics. 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 Weekend notes revoewed. No acute events noted overnight. Patient states that overall he feels better. Reports mild pain at the site of the drain placement. Denies fevers, chills, or rigors. Denies chest pain, shortness of breath, or cough. Denies nausea, vomiting, or diarrhea. Denies abdominal pain and states he appetite is okay. Denies back or leg pain. Denies urinary complaints. Denies oral thrush or skin lesions. Infect Dis PN-Objective Data - Labs CBC & Chem 7: 01/19/17 05:04 01/19/17 05:04 Labs: Laboratory Results - last 24 hr 01/22/17 01/22/17 10:45 10:45 ESR 77 H C-Reactive Protein 51 H Cultures: Cultures 01/18/17 15:40 Anaerobic Culture - Preliminary Aspirate At this time, no anaerobic growth is present. The culture will be finalized after 5 days of incubation. 01/18/17 15:40 Body Fluid Culture - Final Ascites Fluid 01/18/17 15:40 Acid Fast Stain - Final Aspirate Exam - Constitutional Vitals: Temp Pulse Resp BP Pulse Ox 98.1 F 79 18 121/43 95 01/22/17 08:21 01/22/17 08:21 01/22/17 08:21 01/22/17 08:21 01/22/17 08:21 General appearance: average body habitus, cooperative, no acute distress - Head Head exam: Present: atraumatic, normal inspection, normocephalic - Eye Eye exam: Present: EOMI, normal appearance, PERRL Pupils: Present: normal accommodation - ENT ENT exam: Present: mucous membranes moist - Neck Neck exam: Present: normal inspection - Respiratory Respiratory exam: Present: CTAB. Absent: rales, respiratory distress, rhonchi, wheezes - Cardiovascular Cardiovascular exam: Present: RRR, +S1, +S2 - GI/Abdominal GI/Abdominal exam: Present: normal bowel sounds, soft. Absent: distended, tenderness - Extremities Exam Extremities exam: Present: normal inspection. Absent: joint swelling, pedal edema, tenderness - Back Exam Additional comments: Bulb drain noted to the right flank with moderate amount of seropurulent drainage noted. - Neurological Exam Neurological exam: Present: alert, oriented X3, no focal deficits - Psychiatric Psychiatric exam: Present: normal affect, normal mood - Skin Skin exam: Present: dry, intact, normal color, warm Consult Discharge Plan - Plan Instructions: Heart Failure (DC), Depression (DC) Additional Instructions: F/up with in 1-2 weeks F/up with ID- Carmen Waters in 1 week Drain care: -Wash around drain with soap and water in the shower and pat dry daily. - Apply 4 x 4 gauze and tape to secure daily. -Empty drain 3 times daily and as needed if full and record amount on drain record. - Bring drain record to follow up in [address] Spring. Referrals: Katia Spring MD [Partnered Physician] - 02/01/17 10:15 am (Follow up in 1 week. s/p Psoas abscess drainage for drain management. ) Rachel Magana DO [Partnered Physician] - 02/06/17 1:30 pm Carmen Waters, DIRECTOR OF MEDICAL STAFF SERVICES [Advanced Practice Nurse] - Prescriptions: Lactobacillus [Culturelle] 1 each PO BID #60 [email or web address] - Attending Attestation I examined this patient and my medical decision-making was reviewed with the PLATER SUPERVISOR/PA/Advanced Practice Nurse/Resident Physician. I agree with the documented findings, disposition and treatment plan as described except to the extent set forth below.
== END 2017-01-22 15:01 | disposition home health service (06) ==
LOC: EMEROO 16:06 → 3ANU 16:06 → INTOOBSV 18:46 → 3ANU 20:01 → SUATTDRO 01-18 01:13
PROVIDERS: ADMIT Internal Medicine Endocrinology, Diabetes & Metabolism; ATTEND Internal Medicine
PROC: IRDRAIN (2017-01-18 11:00)